=== PATIENT | male | born 1935 | race Caucasian/White ===

== ENCOUNTER 2020-05-08 17:20 | Emergency (ER) | payer OTHER, MEDICARE ==
[~2020-05-08] VITALS: Ht 180.3 cm; Wt 83.9 kg
[2020-05-08 17:40] LABS: BASOPHILS ABSOLUTE AUTO 0.08 K/mm3 (0.00-0.23); BASOPHILS PERCENT AUTO 1 % (0-2); EOSINOPHILS ABSOLUTE AUTO 0.25 K/mm3 (0.00-0.68); EOSINOPHILS PERCENT AUTO 5 % (0-6); Hematocrit 34.6 % (37.0-53.0); Hemoglobin 11.9 g/dL (13.5-17.5); IMMATURE GRAN ABSOLUTE AUTO 0.02 K/mm3 (0.00-0.10); IMMATURE GRAN PERCENT AUTO 0 % (0-1); LYMPHOCYTES ABSOLUTE AUTO 1.29 K/mm3 (0.84-5.20); LYMPHOCYTES PERCENT AUTO 23 % (21-46); MONOCYTES ABSOLUTE AUTO 0.62 K/mm3 (0.16-1.47); MONOCYTES PERCENT AUTO 11 % (4-13); Mean Corpuscular HGB 32.7 pg (26.0-34.0); Mean Corpuscular HGB Conc 34.4 g/dL (31.5-36.5); Mean Corpuscular Volume 95 fL (80-100); Mean Platelet Volume 10.3 fL (9.1-12.4); NEUTROPHILS ABSOLUTE AUTO 3.28 K/mm3 (1.96-9.15); NEUTROPHILS PERCENT AUTO 59 % (41-73); Platelet Count 188 K/mm3 (150-400); RDW Coefficient Variation 12.5 % (11.7-14.2); RDW Standard Deviation 43.4 fL (35.1-46.3); Red Blood Cell Count 3.64 M/mm3 (4.30-5.90); White Blood Cell Count 5.54 K/mm3 (4.00-11.30)
[2020-05-08 17:56] LABS: Bun/Creatinine Ratio 8.2 (12.0-20.0); Creatinine, Blood 2.31 mg/dL (0.60-1.20); Potassium, Blood 4.5 mmol/L (3.5-5.5)
[2020-06-02] MEDS ORDERED: CLOP75 PO (03:06)
[2020-06-02] MEDS ORDERED: ALLO100 PO (03:07)
[2020-06-02] MEDS ORDERED: MEMA10 PO (03:07)
[2020-06-02] MEDS ORDERED: ROSU10TA PO (03:07)
== END 2020-05-08 18:48 | disposition home or self-care (01) ==
LOC: ER 17:20
PROVIDERS: Emergency Medicine
DX: I95.9 Hypotension, unspecified (principal); E86.0 Dehydration
CPT/HCPCS: 80048; 85025; 93005; 93010; 99285-25

== ENCOUNTER 2020-09-11 11:57 | Inpatient (IN) | payer OTHER, MEDICARE ==
[~2020-09-11] VITALS: Ht 170.2 cm; Wt 71.5 kg
[~2020-09-11 11:57] MED LIST: ALLO100 PO; CLOP75 PO; MEMA10 PO; ROSU10TA PO
[2020-09-11 12:29] LABS: BASOPHILS ABSOLUTE AUTO 0.03 K/mm3 (0.00-0.23); BASOPHILS PERCENT AUTO 0 % (0-2); EOSINOPHILS ABSOLUTE AUTO 0.01 K/mm3 (0.00-0.68); EOSINOPHILS PERCENT AUTO 0 % (0-6); Hematocrit 46.9 % (37.0-53.0); Hemoglobin 15.5 g/dL (13.5-17.5); IMMATURE GRAN ABSOLUTE AUTO 0.06 K/mm3 (0.00-0.10); IMMATURE GRAN PERCENT AUTO 1 % (0-1); LYMPHOCYTES ABSOLUTE AUTO 1.16 K/mm3 (0.84-5.20); LYMPHOCYTES PERCENT AUTO 13 % (21-46); MONOCYTES ABSOLUTE AUTO 0.61 K/mm3 (0.16-1.47); MONOCYTES PERCENT AUTO 7 % (4-13); Mean Corpuscular HGB 32.4 pg (26.0-34.0); Mean Corpuscular Volume 98 fL (80-100); Mean Platelet Volume 10.4 fL (9.1-12.4); NEUTROPHILS ABSOLUTE AUTO 6.85 K/mm3 (1.96-9.15); NEUTROPHILS PERCENT AUTO 79 % (41-73); Platelet Count 209 K/mm3 (150-400); RDW Coefficient Variation 13.5 % (11.7-14.2); RDW Standard Deviation 49.1 fL (35.1-46.3); Red Blood Cell Count 4.79 M/mm3 (4.30-5.90); White Blood Cell Count 8.72 K/mm3 (4.00-11.30)
[2020-09-11 12:40] LABS: International Normalized Ratio 0.99; Prothrombin Time Results 10.6 Sec (9.7-11.5)
[2020-09-11 12:49] LABS: Albumin/Globulin Ratio 0.6 (0.8-1.8); Bilirubin, Total 0.6 mg/dL (0.1-1.0); Bun/Creatinine Ratio 15.3 (12.0-20.0); Calcium, Blood 9.1 mg/dL (8.5-10.1); Creatinine, Blood 3.2 mg/dL (0.60-1.20); Globulin, Blood 5.1 g/dL (2.2-4.0); Potassium, Blood 4.7 mmol/L (3.5-5.5); Total Protein, Blood 8.1 g/dL (6.4-8.2)
[2020-09-11 13:49] LABS: SARS-Cov-2 (COVID-19) PCR, MMC Positive (NEGATIVE)
[2020-09-11 13:53] LABS: Influenza A, PCR Negative (NEGATIVE); Influenza B, PCR Negative (NEGATIVE); Resp Syncytial Virus, PCR Negative (NEGATIVE)
[2020-09-11] MEDS ORDERED: CLOP75 PO (14:14)
[2020-09-11] MEDS ORDERED: ALLO100 PO (14:14)
[2020-09-11] MEDS ORDERED: Prinivil10 MG PO (14:14)
[2020-09-11] MEDS ORDERED: MEMA10 PO (14:14)
[2020-09-11] MEDS ORDERED: ROSU5 PO (14:15)
--- NOTE | 2020-09-11 17:43 | NUR ---
PT ARRIVED 1600 AOX1 THIS IS HIS BASELINE DUE TO DEMENTIA.PT IS RESTING IN BED AT THIS TIME WILL CONTINUE TO MONITOR. CALL LIGHT IS WITHIN REACH, PT WILL MOST LIKELY NOT KNOW HOW TO USE IT. BED ALARM ON.
--- NOTE | 2020-09-12 05:06 | NUR ---
84 year old MAle with dementia covid 19 positive was admitted yesterday through ER & he had been living at [facility] but had been taken home by with Covid 19 outbreak at Facility. Very poor oral intake fed bites of yogurt & sips honey thick liquids. He is on room air , has dry nonprod cough. Recieving 1.5 l NS at 75 ml hour. Incontinent of urine unable to void for UA ordered in ED. Confused can resist cares other times mumbling about going home & loving staff.
[2020-09-12 06:23] LABS: BASOPHILS ABSOLUTE AUTO 0.03 K/mm3 (0.00-0.23); BASOPHILS PERCENT AUTO 0 % (0-2); EOSINOPHILS ABSOLUTE AUTO 0.06 K/mm3 (0.00-0.68); EOSINOPHILS PERCENT AUTO 1 % (0-6); Hemoglobin 15.5 g/dL (13.5-17.5); IMMATURE GRAN ABSOLUTE AUTO 0.07 K/mm3 (0.00-0.10); IMMATURE GRAN PERCENT AUTO 1 % (0-1); LYMPHOCYTES ABSOLUTE AUTO 1.15 K/mm3 (0.84-5.20); LYMPHOCYTES PERCENT AUTO 14 % (21-46); MONOCYTES ABSOLUTE AUTO 0.76 K/mm3 (0.16-1.47); MONOCYTES PERCENT AUTO 9 % (4-13); Mean Corpuscular Volume 97 fL (80-100); Mean Platelet Volume 10.3 fL (9.1-12.4); NEUTROPHILS ABSOLUTE AUTO 6.13 K/mm3 (1.96-9.15); NEUTROPHILS PERCENT AUTO 75 % (41-73); Platelet Count 172 K/mm3 (150-400); RDW Coefficient Variation 13.7 % (11.7-14.2); RDW Standard Deviation 49.5 fL (35.1-46.3); Red Blood Cell Count 4.85 M/mm3 (4.30-5.90)
[2020-09-12 06:53] LABS: Albumin, Blood 2.6 g/dL (3.4-5.0); Albumin/Globulin Ratio 0.6 (0.8-1.8); Bilirubin, Total 0.7 mg/dL (0.1-1.0); Bun/Creatinine Ratio 22.8 (12.0-20.0); Calcium, Blood 8.6 mg/dL (8.5-10.1); Creatinine, Blood 1.8 mg/dL (0.60-1.20); Globulin, Blood 4.7 g/dL (2.2-4.0); Potassium, Blood 4.6 mmol/L (3.5-5.5); Total Protein, Blood 7.3 g/dL (6.4-8.2)
--- NOTE | 2020-09-12 16:53 | NUR ---
PT BLADDER SCANNED 454ML. PT WAS STRAIGHT CATHED AND TOLERATED WELL WITH HELP FROM SECOND NURSE TO DISTRACT PT. 400 MLs OUTPUT.
[2020-09-12 16:59] LABS: Source, Urine Catheter
[2020-09-12 17:06] LABS: Appearance, Urine Clear (Clear); Bilirubin, Urine Neg (Neg); Blood, Urine 1+ (Neg); Color, Urine Yellow (P-Yellow); Glucose Qualitative, Urine Neg (Neg); Ketones, Urine Neg (Neg); Leukocyte Esterase, Urine Neg (Neg); Nitrite, Urine Neg (Neg); Protein, Urine 2+ (Neg); Urobilinogen, Urine NORM (Normal)
[2020-09-12 17:18] LABS: Squamous Epithelial Cells Not Seen /hpf (Few); White Blood Cells, Urine 0-2 /hpf (0-5)
[2020-09-12 17:19] LABS: Bacteria Rare /hpf
--- NOTE | 2020-09-12 18:00 | NUR ---
PT AOX1 AND NEEDS TURNED EVERY COUPLE HOURS OR JUST REPOSITIONED IN BED. PT CAN NOT USE CALL LIGHT. PT HAD PT STANDING AT SIDE OF BED, BUT PT IS UNSTEADY. PT DID NOT VOID TILL RIGHT BEFORE FIRST BLADDER SCAN AND HAD OVER 600MLS. NOTIFIED DR COLLAZO AND A STRAIGHT CATH ORDER WAS ADDED TO EMAR. PT AGIAN VOIDED PRIOR TO STRAIGHT CATH AND SECOND BLADDER SCAN SHOWED 454MLs.STRAIGHT CATH WAS PREFORMED SEE NOTE. PT WAS NOT HAPPY ABOUT BEING STRIAGHT CATHED AND DIDN'T WANT TO TAKE PILL TRIED TO FEED PT DINNER AND HE SPIT IT OUT. PT IS RESTING AT THIS TIME WILL CONTINUE TO MONITOR BED ALARM IN PLACE.
--- NOTE | 2020-09-13 03:28 | NUR ---
84 year old Male with Dementia who is [place] who was living at [facility] when Covid 19 outbreak occured was taken home & had failure to thrive per EMS report. Covid 19 positive. Room air sat 90 to 93%. Pt continues with oral intake only with extensive assist cues setup. Able to take ensure via straw 50%. fed pudding around 200 ml over extended period. Confused unsure where he is or who he is. DNR status. VSS. Bladder scanned x 1 for greater than 293 but incont of large amt ramona urine. Used call martin x 1 . Cares channel music playing.
--- NOTE | 2020-09-13 10:50 | NUR ---
HE SLEPT IN THEN WAS FED BUT WOULD ONLY EAT A FEW BITES, THEN SPIT SOME OUT. HIS ATTENDS WERE CHANGED FOR A SMALL AMT OF URINE. WILL BLADDER SCAN HIM. HE LOOKS COMFORTABLE WHEN HE SLEEPS.
--- NOTE | 2020-09-13 15:29 | NUR ---
HE COUGHED WITH A FEW OF THE SWALLOWS AT LUNCHTIME. NO APPARENT ASPIRATION. MD NOTIFIED OF POOR INTAKE. HE HAS BEEN RESTING COMFORTABLY. HE WAS WATCHING THE TRAFFIC THROUGH THE WINDOW FOR A COUPLE OF HRS. HE LIKED THAT.
--- NOTE | 2020-09-13 17:57 | NUR ---
HE HAS BEEN PLEASANTLY CONFUSED ALL DAY. HE LOOKS COMFORTABLE. HE DOESN'T SEEM TO UNDERSTAND ANYTHING THAT IS SAID TO HIM. HE WAS ST. CATHED AT 1140 FOR 525 MLS OF CLEAR ELAINA URINE AFTER BEING UNABLE TO VOID EXCEPT FOR A SMALL DRIBBLE. PO INTAKE POOR. HE COUGHS DURING FEEDING AND HE SAYS HE'S HAD ENOUGH AFTER A FEW BITES AND REPEATS HIMSELF WHEN WE TRY TO GIVE HIM MORE BITES. HE WAS CAUGHT WITH A FEVER THIS MORNING BEFORE BREAKFAST BUT BY THE TIME I RECHECKED IT ABOUT 0930, IT WAS DOWN TO THE 99'S. HE HAS 1 SKIN BREAK ON HIS LEFT BUTTOCK. CREAM APPLIED DURING LINDA-CARE.
--- NOTE | 2020-09-14 02:51 | NUR ---
PT with advanced dementia with covid 19 and failure to thrive. PT has swallow issues modified fluids & soft food provided. He is unable to understand basic instructions. Extra support provided for cognative deficits related to dementia.
--- NOTE | 2020-09-14 03:01 | NUR ---
continue to provide extra support for dementia PT with covid 19.
--- NOTE | 2020-09-14 06:08 | NUR ---
84 year old [place] with dementia continues with pleasant confusion but still failure to eat or drink. Very poor oral intake bites sips only with extensive assist. PT affectionate. PT also repeatedly says he wants to go home but he has no idea where that is or who he is to. PT reportedly had been living at [facility] care facility [facility] when Covid outbreak occured. SW referral for DC planning. On room air occasional loose nonproductive cough. Incontient of ramona dark urine. Bladder scan x 2 with less than 400 PVR. Support offered with oral intake & taken poorly.
[2020-09-14 08:22] LABS: Hematocrit 43.3 % (37.0-53.0); Hemoglobin 14.4 g/dL (13.5-17.5); Mean Corpuscular HGB 31.8 pg (26.0-34.0); Mean Corpuscular HGB Conc 33.3 g/dL (31.5-36.5); Mean Corpuscular Volume 96 fL (80-100); Platelet Count 249 K/mm3 (150-400); RDW Coefficient Variation 13.3 % (11.7-14.2); RDW Standard Deviation 47.7 fL (35.1-46.3); Red Blood Cell Count 4.53 M/mm3 (4.30-5.90); White Blood Cell Count 6.52 K/mm3 (4.00-11.30)
[2020-09-14 08:44] LABS: Bun/Creatinine Ratio 19.8 (12.0-20.0); Calcium, Blood 8.7 mg/dL (8.5-10.1); Creatinine, Blood 1.26 mg/dL (0.60-1.20); Potassium, Blood 4.1 mmol/L (3.5-5.5)
--- NOTE | 2020-09-14 09:40 | NUR ---
HE JUST TOOK ABOUT 12 BITES OF OATMEAL AND A 1/3 OF A BOTTLE OF VANILLA ENSURE A LATE BREAKFAST. HE REFUSED EARLIER, SPITTING BITES OF EGG BACK OUT. HIS MOOD HAS BEEN LABILE. HE ALLOWED THE ELECTRONICS LEAD TO DRAW HIS BLOOD AFTER FIGHTING IT AT FIRST. LAB RESULTS ARE IMPROVED OVER PREVIOUS ONES. ISOLATION ONGOING AND BED ALARM ON.
--- NOTE | 2020-09-14 18:19 | NUR ---
HIS CALLED TODAY AND LATER, HIS DAUGHTER TIKA FROM [place] CALLED. I COULD NOT GIVE HER ANY INFORMATION BUT GAVE HER THE NUMBER TO CALL INTO THE ROOM. I HELD THE PHONE FOR HIM. I BELIEVE HE KNEW WHO SHE WAS. HE MOSTLY SAID HE WANTED TO GO HOME AND TO SEE HER. HIS MOODS CHANGED OFTEN TODAY. HIS BLADDER SCAN WAS 203 AT NOON. HE HAS NOT VOIDED THIS SHIFT. NO OTHER CHANGES.
--- NOTE | 2020-09-15 05:39 | NUR ---
SHIFT SUMMARY ASSUMED CARE OF PT AT 1900. PT IS A/OX1. PT SCREAMS OUT IN HIS ROOM, PT ABLE TO BE CALMED WITH SINGING AND REASSURANCE. HEART SOUNDS REGUALR, LUNG SOUNDS DIMINISHED T/O. PT COUGHS WITH EACH DRINK OF WATER. PT INCONTINENT OF URINE, BLADDER SCANS HAVE BEEN ABOUT 200ML POST VOID. PT WAS NOT ABLE TO FOLLOW DIRECTIONS TO TAKE MEDICATION THE PM, AND PILL COULD NOT BE CRUSHED. PT HAS TWO RED ASIF ON BUTTOCK, TURNED Q2. PT O2 LEVELS THIS AM WERE 86% AFTER BEING CHANGED. PT WAS PUT ON 3L NC AND SATURATIONS ARE AROUND 90-93%. WILL CONTINUE TO MONITOR. CALL LIGHT IN REACH, BED IN LOWEST POSTION.
--- NOTE | 2020-09-15 19:40 | NUR ---
ASSUMED CARE. TRIP IS ALERT ORIENTED TO SELF ONLY. UNABLE TO STATE OR WHERE HE IS AT. FEARFUL, ASKING FOR HELP, WANTS TO GO HOME, STATES HE HAS NO WHERE TO GO, IS AFRAID OF BEING ALONE. REASSURRED HIM HE WAS SAFE AND STAYING HERE RIGHT NOW. LUNG SOUNDS ARE CLEAR, MILD DIMINISHED IN THE BASES. OCCATIONAL COUGH, NON-PRODUCTIVE. DENIED PAIN. ATTENDS DRY, BUT THERE WAS A LARGE WET URINE SPOT ON THE COVERS. REMOVED COVERS, STRAIGHTEN UP BED AND ROOM. DENIES NEED TO URINATE AT THIS TIME. REPOSITIONED UP IN BED. CALL LIGHT GIVEN. ADMINISHED HIS MED BY [facility]. OFFERED WATER. BED ALARM IS ON, 3 RAILS. WILL CONTINUE TO MONITOR.
--- NOTE | 2020-09-15 21:58 | NUR ---
TRIP IS VERY CONFUSED, HAVING AUDITORY AND VISUAL HULLUCINATIONS. STILL CALLING OUT FOR HIS , HELP AND WANTING TO GO HOME. 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 BEEN IN THE ROOM SEVERAL TIMES TO CALM HIM DOWN AND REASSURE HIM. PROVIDED COMFORT WITH JUST SITTING IN THE ROOM WITH HIM. ATTENDS DRY AT THIS TIME. BED ALARM IS ON.
--- NOTE | 2020-09-16 01:04 | NUR ---
TRIP HAS HAD SEVERAL INCONTIENT VOIDS TONIGHT. THIS TIME HE WAS A LITTLE OFFENSIVE NOT WANTING ME TO CHANGE HIM. HE KEPT PUSHING ME AWAY THINKING I WAS GOING TO HURT HIM. HE CONSTANTLY SAID DON'T HURT ME. GAVE STEP TO STEP INSTRUCTIONS ON WHAT I WAS DOING. BLADDER SCAN POST VOID WAS 101. CLEAN BLANKETS GIVEN AGAIN. THINK HE IS TRYING TO GO TO THE BATHROOM BY PULLING SELF OUT OF ATTENDS AND VOIDING, ENCOURAGED USE OF URINAL BUT HE DOES NOT REMEMBER. WILL KEEP HIM CLEAN AND DRY T/O THE NIGHT. BED ALARM IS ON, MUSIC PLAYING, CALL LIGHT NEXT HEAD.
--- NOTE | 2020-09-16 05:06 | NUR ---
SHIFT SUMMARY: TRIP IS PLEASANTLY CONFUSED. TENDS TO BE FEARFUL CONSTANTLY REPEATING HELP, WANT TO GO HOME, AND DON'T HURT ME. THERE WAS A FEW TIMES HE PUSHED ME AWAY HE DID NOT WANT TO BE MESSED WITH BUT NEVER HIT. HIS BLADDER SCAN PVR WAS 101, HE HAS BEEN URINATING WELL ALL NIGHT. VS WNL, MILD FEBRILE AT 99. SMALL BM NOTED. SLEPT OFF AND ON. NO OTHER CHANGES TO NOTE. CALL LIGHT IN REACH, BED ALARM IS ON.
--- NOTE | 2020-09-16 17:50 | NUR ---
SHIFT SUMMARY PT SLEEPING AT START OF SHIFT. DID NOT LIKE TO BE BOTHERED OR WOKE UP. PT LATER AWAKE BUT NOT CO-OP. PT REFUSED HIS BREAKFAST AND AM MEDS. ANS YES AT ONE POINT TO WANTING SOME OATMEAL. FLOMAX GIVEN WITH SPOON OF OATMEAL, BUT PT SHOOK HIS HEAD AND SPIT OATMEAL AND FLOMAX AT THIS RN. PT REFUSED ANYTHING FURTHER OFFERED. REFUSED TO DRINK ANYTHING WELL. PT FINALLY AGREED TO DRINKING A SMALL AMT OF MILK AND A SIP OF WATER. PT REFUSED LUNCH COMPLETELY. PT FINALLY DID VOID X1 THIS AFTERNOON. LINEN, GOWN, AND ATTENDS ALL CHANGED FOR COMFORT AT THE SAME TIME. PT WAS SOMEWHAT AGREEABLE AT THAT TIME, ALLOWING THIS RN TO CHANGE HIM, BECAUSE HIS HAD JUST CALLED FOR AN UPDATE AND IT WAS MENTIONED TO THE PT THAT HIS HAD CALLED. PT WAS DISTRACTED WHILE CHANGING BY TALKING ABOUT HIS . PT LATER AGREEABLE TO TAKING A BITE OF MASHED POTATOES, THEN REFUSED ANY REMAINING DINNER. PT DID EAT 3 BITES OF ICE CREAM BEFORE REFUSING EVERYTHING ELSE. REFUSED TO DRINK ANYTHING OFFERED WELL. PT AWAKE MORE THIS EVENING THAN HE WAS EARLY INTO SHIFT. NO C/O. BED ALARM ON FOR SAFETY. CALL LT IN REACH.
--- NOTE | 2020-09-17 05:12 | NUR ---
SUMMARY PT WAS AGITATED AT BEGINNING OF SHIFT. PT REPEATEDLY PULLED OFF ATTENDS AND PULLED OUT IV. PT ATTEMPTED TO GET OUT OF BED MULTIPLE TIMES. PROVIDER CALLED AND A SHARMILA VEST WAS ORDERED. PT HAS BEEN HAVING INCOTINENT VOIDS. BLADDER SCANS < 400 ML. PT HAS SLEPT SOME THIS SHIFT. PT DAUGHTER TIKA CALLED FOR A UPDATE. NUMBER ON BOARD. CALL LIGHT IN REACH AND BED ALARM ON.
--- NOTE | 2020-09-17 18:38 | NUR ---
SHIFT SUMMARY PT MORE AWAKE TODAY AND PLEASANT ALL DAY. SAID YES TO EATING SOME OF EVERY MEAL TODAY. TOOK ALL MEDICATIONS IN FOOD. INCONTINENT OF URINE ALL BUT ONCE; WAS ABLE TO USE URINAL X1 WITH ASSIST. KEEPS ATTENDS DRY, BUT VOIDS ON LINEN. REMAINS CONFUSED AND DISORIENTED, BUT WAS PLEASANT AND CO-OP ALL DAY. PT IN VEST RESTRAINT FOR SAFETY, D/T CONFUSION AND HIGH FALL RISK. PT DOES NOT KNOW WHERE HE IS OR WHY. PT'S CALLED AGAIN TODAY TO CK ON PT; UPDATE GIVEN. PT WAITING FOR NEGATIVE COVID IN ORDER TO BE INTERVIEWED BY RAFAEL GLOVER. BED ALARM ON FOR SAFETY. CALL LT IN REACH.
--- NOTE | 2020-09-18 04:39 | NUR ---
SHIFT SUMMARY PATIENT HAD NO ACUTE CHANGES OBSERVED. AXOX TO SELF AND BEDREST. HX ADVANCED DEMENTIA. TAKES MEDICATION CRUSHED IN APPLE SAUCE. NO IV ACCESS. SHARMILA VEST FOR SAFETY, HIGH FALL RISK, AND FOR CONFUSION. PATIENT CALLED THIS NOC SHIFT AND UPDATE GIVEN. VSS/AFEBRILE. DENIES PAIN, SOB, AND N/V. CALL LIGHT IN REACH, BED IN LOWEST POSITION AND ALARM ACTIVATED. WILL CONTINUE TO MONITOR UNTIL DAY SHIFT NURSE ASSUMES CARE.
--- NOTE | 2020-09-18 18:22 | NUR ---
SHIFT SUMMARY PT ALERT ORIENTED TO SELF AND . PT ON VEST RESTRAINTS; VERY HIGH FALL RISK. RESTRAINTS MANAGEMENT PER POLICY Q2. PT TAKES MEDICATION WITH APPLESAUCE. PT CALLED TO GET AN UPDATE FOR THE PT. PT PLEASANTLY CONFUSED. BED ALARM IS ON AND CALL LIGHTS WITHIN REACH.
--- NOTE | 2020-09-19 03:45 | NUR ---
SHIFT SUMMARY HAS BEEN AWAKE AT INTERVALS, INCONT OF URINE AND FECES - OCCASIONALLY FLINGING FECES ABOUT ROOM. SHARMILA VEST ON TO PREVENT FALLING OUT OF BED HE CONTINUES TO VOICE HE WASNTS TO GO HOME AND IS VERY UNSTEADY. ISOLATION PRECAUTIONS MAINTAINED FOR COVID 19. CALL LIGHT IN REACH
--- NOTE | 2020-09-19 10:36 | NUR ---
PT APPEARS TO BE BREATHING EASILY ON RA AT THIS TIME, THE PT IS VERY CONFUSED, PT WAS ASSISTED WITH BREAKFAST, CHEWED HIS AM FLOMAX, PT REMAINS IN SHARMILA VEST AT THIS TIME, PT WOULD ONLY EAT SOME BITES THIS AM, HOWEVER, DID DRINK THE ENSURE
--- NOTE | 2020-09-19 16:28 | NUR ---
PT IS ALERT, ORIENTED ONLY TO SELF, THE PT APPEARS TO BE BREATHING EASILY ON RA AT THIS TIME, THE PT IS IMPULSIVE AND CONTINUES TO NEED VEST RESTRAINT AT THIS TIME, THE PT WAS ASSISTED WITH MEALS, HE ATE BITES ONLY FOR BREAKFAST, AND ABOUT 30-40% OF HIS LUNCH THE PT COMPLETLY DRANK THIS AM'S ENSURE, CALL LIGHT IN REACH WILL CONTINUE TO MONITOR AND ASSESS FOR CHANGES
--- NOTE | 2020-09-19 21:26 | NUR ---
TEMP ELEVATED, WAS 102.6 TEMPORAL. TYLENOL ADMINISTERED, MED EFFECTIVE. TEMP NOW 100.0 TEMPROAL. LESS ANXIOUS. RESSTING QUIETLY. CALL LIGHT IN REACH
--- NOTE | 2020-09-20 04:44 | NUR ---
SHIFT SUMMARY AWAKE AT INTERVALS, CHANGED WHEN INCONT OF URINE AND OF FECES. SHARMILA REMAINS NI USE TO PREVENT FALLS, HE IS UNSTEADY AND HIGH FALL RISK, REQUIRING REDIRECTIONS THROUGH SHIFT. CALL LIGHT IN REACH. ISOLATION PRECAUTIONS MAINTAINED.
[2020-09-20 05:59] LABS: Hemoglobin 15.8 g/dL (13.5-17.5); Mean Corpuscular HGB Conc 32.2 g/dL (31.5-36.5); Mean Corpuscular Volume 99 fL (80-100); Mean Platelet Volume 10.9 fL (9.1-12.4); Platelet Count 343 K/mm3 (150-400); RDW Coefficient Variation 14.3 % (11.7-14.2); RDW Standard Deviation 51.7 fL (35.1-46.3); Red Blood Cell Count 4.94 M/mm3 (4.30-5.90); White Blood Cell Count 22.64 K/mm3 (4.00-11.30)
[2020-09-20 06:22] LABS: Albumin, Blood 2.5 g/dL (3.4-5.0); Anion Gap 5 mmol/L (6-16); Blood Urea Nitrogen 47 mg/dL (8-24); Bun/Creatinine Ratio 24.1 (12.0-20.0); CO2, Blood 27 mmol/L (21-32); Calcium, Blood 9.4 mg/dL (8.5-10.1); Chloride, Blood 113 mmol/L (98-108); Creatinine, Blood 1.95 mg/dL (0.60-1.20); Glomerular Filtration Rate 35 (60-); Glucose, Blood 137 mg/dL (70-99); Phosphorus, Blood 2.7 mg/dL (2.5-4.9); Potassium, Blood 4.7 mmol/L (3.5-5.5); Sodium, Blood 145 mmol/L (136-145)
[2020-09-20 09:20] LABS: PCO2 Arterial 26.8 mmHg (35-45); PO2 Arterial 69.3 mmHg (80-100); pH Blood Arterial 7.47 (7.35-7.45)
[2020-09-20 10:54] LABS: Source, Urine Catheter
[2020-09-20 11:07] LABS: Appearance, Urine Hazy (Clear); Blood, Urine 1+ (Neg); Color, Urine Yellow (P-Yellow); Glucose Qualitative, Urine Neg (Neg); Ketones, Urine 1+ (Neg); Leukocyte Esterase, Urine 1+ (Neg); Nitrite, Urine Neg (Neg); Protein, Urine 2+ (Neg); Urobilinogen, Urine 1+ (Normal)
[2020-09-20 11:43] LABS: Bilirubin, Urine 1+ (Neg)
[2020-09-20 11:45] LABS: Amorphous Heavy (0-Heavy); Bacteria Few /hpf; Squamous Epithelial Cells Rare /hpf (Few)
--- NOTE | 2020-09-20 16:15 | NUR ---
PT IS ALERT, ORIENTED TO SELF ONLY, THE PT IS UP WITH 2 PERSON ASSIST TO THE CHAIR, THE PT APPEARS TO BE BREATHING EASILY ON RA SO FAR THIS SHIFT, O2 SATS WERE CHECKED MORE FREQUANTLY TODAY, THE PT CONTINUES TO HAVE A POOR APPETITE, ONLY TAKING A SMALL AMOUNT OF BITES, THE PT WAS OFFERED FLUIDS FREQUANTLY T/O THE DAY, PT DID DRINK THE ENSURE SENT WITH HIS MEAL TRAYS, THE PT REMAINS IN A SHARMILA VEST DUE TO HIGH FALL RISK, WEAKNESS AND SEVERE DEMENTIA, PT DENIED ANY PAIN, PT WAS UP IN THE CHAIR FOR BREAKFAST AND WILL TRANSFER HIM TO THE CHAIR FOR DINNER, CALL LIGHT IN REACH, WILL CONTINUE TO MONITOR AND ASSESS FOR CHANGES
--- NOTE | 2020-09-20 16:33 | NUR ---
Spiritual care note: Mr. Kam awakens to voice, mumbles incoherantly, and went back to sleep. He denied pain and appears comfortable. Per chart, he is non-christianity. Held his hand for awhile providing presence. I will remain available.
--- NOTE | 2020-09-20 18:24 | NUR ---
IV ACCESS THIS RN WAS NOT ABLE TO START AN IV AFTER 3 TRIES WITH THE PATIENT, THE OUTER DIAMETER TECHNICIAN WAS NOTIFIED AND THE IV START WILL BE PASSED TO THE PREMIUM CANCELLATION CLERK PER OUTER DIAMETER TECHNICIAN MARU
--- NOTE | 2020-09-20 21:10 | NUR ---
PHYSICIAN CONTACT PATTERN MARKER PROVIDER NOTIFIED OF CURRENT VITALS. 500ML BOLUS ORDERED.
[2020-09-20 22:48] LABS: Albumin, Blood 2.4 g/dL (3.4-5.0); Albumin/Globulin Ratio 0.4 (0.8-1.8); Bilirubin, Total 0.5 mg/dL (0.1-1.0); Bun/Creatinine Ratio 23.5 (12.0-20.0); Calcium, Blood 9.5 mg/dL (8.5-10.1); Creatinine, Blood 3.07 mg/dL (0.60-1.20); Globulin, Blood 5.8 g/dL (2.2-4.0); Potassium, Blood 4.5 mmol/L (3.5-5.5); Total Protein, Blood 8.2 g/dL (6.4-8.2)
--- NOTE | 2020-09-21 04:45 | NUR ---
RISK AND COMPLIANCE ANALYTICS DIRECTOR SUMMARY ALERT AND ORIENTED TO SELF ONLY. UNABLE TO FOLLOW DIRECTIONS. ICU NURSE TO BEDSIDE TO ESTABLISH PERIPHERAL LINE. PT HYPOTENSIVE AT BEGINNING OF SHIFT, 500ML BOLUS GIVEN FOLLOWED BY DOSE OF ROCEPHIN AND REMDESIVIR. APPEARED TO SLEEP T/O SHIFT. SHARMILA VEST IN PLACE WELL L. SOFT WRIST RESTRAINT. NO ACUTE NEEDS AT THIS TIME. BED IN LOWEST POSITION WITH CALL LIGHT IN REACH. BED ALARM ACTIVE. WILL CONTINUE TO MONITOR AND REPORT TO ONCOMING RN.
[2020-09-21 05:42] LABS: Hemoglobin 14.3 g/dL (13.5-17.5); Mean Corpuscular HGB 32.3 pg (26.0-34.0); Mean Corpuscular HGB Conc 32.5 g/dL (31.5-36.5); Mean Corpuscular Volume 99 fL (80-100); Mean Platelet Volume 11.2 fL (9.1-12.4); Platelet Count 321 K/mm3 (150-400); RDW Coefficient Variation 14.3 % (11.7-14.2); RDW Standard Deviation 52.7 fL (35.1-46.3); Red Blood Cell Count 4.43 M/mm3 (4.30-5.90); White Blood Cell Count 26.04 K/mm3 (4.00-11.30)
[2020-09-21 05:58] LABS: Albumin, Blood 2.2 g/dL (3.4-5.0); Anion Gap 7 mmol/L (6-16); Blood Urea Nitrogen 66 mg/dL (8-24); Bun/Creatinine Ratio 24.1 (12.0-20.0); CO2, Blood 26 mmol/L (21-32); Chloride, Blood 114 mmol/L (98-108); Creatinine, Blood 2.74 mg/dL (0.60-1.20); Glomerular Filtration Rate 24 (60-); Glucose, Blood 147 mg/dL (70-99); Potassium, Blood 4.1 mmol/L (3.5-5.5); Sodium, Blood 147 mmol/L (136-145)
--- NOTE | 2020-09-21 18:06 | NUR ---
SHIFT SUMMARY. ALERT, ORIENTATED TO SELF, ANSWERS SOME Y/N QUESTIONS APPROPRIATLEY, PLEASANT AND COOPERATIVE WITH STAFF. PT DENIES PAIN, NO S/SX OF DISCOMFORT OR DISTRESS. POOR PO INTAKE, PT ONLY TAKES A FEW BITES AT EACH MEAL BEFORE REFUSING TO TAKE ANY MORE, PT WILL ALSO ONLY DRINK APPROXIMATLEY 100ML OF FLUIDS AT A TIME. INCONTINENT OF BOWEL AND BLADDER. BLADDER SCAN THIS AFTERNOON REVEALED VOLUME OF OVER 500ML, PT THEN HAD VERY LARGE INCONTINENT VOID, FOLLOWED BY ANOTHER APPROXIMATELY 2 HOURS AFTER. UPDATED ON PT'S STATUS THIS AFTERNOON. LUNGS CLEAR, DIM T/O, SHALLOW BREATHING, ON RA WITH NO RESPIRATORY DISTRESS. NO OTHER CHANGES OR CONCERNS.
--- NOTE | 2020-09-22 04:30 | NUR ---
FPGA DESIGN ENGINEER WAS NOT ABLE TO DRAW BLOOD THIS AM;WILL TRY AGAIN AT 7AM FOR RENAL AND CBC LAB DRAW.
--- NOTE | 2020-09-22 04:58 | NUR ---
SHIFT SUMMARY PT AOX1 TO SELF ONLY. PT BLADDER SCAN AMOUNT 338 ML; PT HAD A INCONTINENT VOID AMOUNTX2 FOR THIS SHIFT. DENIES PAIN AND NO APPARENT DISTRESS. DIMINISHED LUNG SOUNDS THROUGHOUT. PT IS PLEASANTLY CONFUSED. VSS. BED ALARM IS ON AND BED IS IN THE LOWEST POSITION; CALL LIGHT WITHIN REACH.
[2020-09-22 08:05] LABS: BASOPHILS ABSOLUTE AUTO 0.03 K/mm3 (0.00-0.23); BASOPHILS PERCENT AUTO 0 % (0-2); EOSINOPHILS ABSOLUTE AUTO 0.01 K/mm3 (0.00-0.68); EOSINOPHILS PERCENT AUTO 0 % (0-6); Hematocrit 45.2 % (37.0-53.0); Hemoglobin 14.5 g/dL (13.5-17.5); IMMATURE GRAN ABSOLUTE AUTO 0.17 K/mm3 (0.00-0.10); IMMATURE GRAN PERCENT AUTO 1 % (0-1); LYMPHOCYTES ABSOLUTE AUTO 0.93 K/mm3 (0.84-5.20); LYMPHOCYTES PERCENT AUTO 6 % (21-46); MONOCYTES ABSOLUTE AUTO 0.56 K/mm3 (0.16-1.47); MONOCYTES PERCENT AUTO 4 % (4-13); Mean Corpuscular HGB 31.3 pg (26.0-34.0); Mean Corpuscular HGB Conc 32.1 g/dL (31.5-36.5); Mean Corpuscular Volume 98 fL (80-100); NEUTROPHILS ABSOLUTE AUTO 13.89 K/mm3 (1.96-9.15); NEUTROPHILS PERCENT AUTO 89 % (41-73); RDW Coefficient Variation 14.7 % (11.7-14.2); RDW Standard Deviation 52.7 fL (35.1-46.3); Red Blood Cell Count 4.63 M/mm3 (4.30-5.90); White Blood Cell Count 15.59 K/mm3 (4.00-11.30)
[2020-09-22 08:09] LABS: Mean Platelet Volume 11.6 fL (9.1-12.4); Platelet Count 245 K/mm3 (150-400)
[2020-09-22 10:01] LABS: Albumin, Blood 2.1 g/dL (3.4-5.0); Anion Gap 6 mmol/L (6-16); Blood Urea Nitrogen 78 mg/dL (8-24); Bun/Creatinine Ratio 41.9 (12.0-20.0); CO2, Blood 22 mmol/L (21-32); Calcium, Blood 9.3 mg/dL (8.5-10.1); Chloride, Blood 119 mmol/L (98-108); Creatinine, Blood 1.86 mg/dL (0.60-1.20); Glomerular Filtration Rate 37 (60-); Glucose, Blood 189 mg/dL (70-99); Phosphorus, Blood 3.3 mg/dL (2.5-4.9); Potassium, Blood 4.3 mmol/L (3.5-5.5); Sodium, Blood 147 mmol/L (136-145)
[2020-09-22 14:51] LABS: Vancomycin, Random 8.2 ug/mL
--- NOTE | 2020-09-22 18:10 | NUR ---
SHIFT SUMMARY. ALERT, DISORIENTATED. PULLING AT LINES AND ATTEMPTING TO GET OOB UNASSISTED, DOOR MUST REMAIN CLOSED SO RESTRAINTS REQUIRED FOR SAFETY AND TO PRESERVE IV LINE FOR MEDICATIONS. CONTINUES WITH POOR PO INTAKE, PT WILL REFUSE TO EAT OR DRINK MORE THAN 2-4 BITES OR 2-4 DRINKS AT A TIME. INCONTINENT OF BOWEL AND BLADDER. NO OTHER CHANGES OR CONCERNS.
--- NOTE | 2020-09-23 05:37 | NUR ---
SHIFT SUMMARY: VSS. AFEB. AA0 TO SELF AND SPOUSE. AT TIMES TEARFUL AND SEEKING REASSURANCE. WILL CALL OUT OCCASIONALLY BUT REDIRECTS WELL. SHARMILA VEST IN PLACE AND BED ALARM. PT VERY ACTIVE IN BED. REMOVES SOCKS AND ATTENDS FAST THEY CAN BE APPLIED. INCONTINENT. STRAIGHT CATHED DUE TO NO VOID. PT SLEPT INTERMITTENTLY. 02 95-100% ON RA. LS CLEAR/DIM. NO COUGHING NOTED.
[2020-09-23 05:51] LABS: Albumin, Blood 2.2 g/dL (3.4-5.0); Anion Gap 5 mmol/L (6-16); Blood Urea Nitrogen 74 mg/dL (8-24); Bun/Creatinine Ratio 45.4 (12.0-20.0); CO2, Blood 26 mmol/L (21-32); Calcium, Blood 9.5 mg/dL (8.5-10.1); Chloride, Blood 118 mmol/L (98-108); Creatinine, Blood 1.63 mg/dL (0.60-1.20); Glomerular Filtration Rate 43 (60-); Glucose, Blood 160 mg/dL (70-99); Phosphorus, Blood 3.7 mg/dL (2.5-4.9); Sodium, Blood 149 mmol/L (136-145)
--- NOTE | 2020-09-24 04:54 | NUR ---
SHIFT SUMMARY: VSS. AFEB. A/OX1. 02 95% ON RA. NO SOB. INFREQUENT DRY COUGH. NO ATTEMPTS TO SELF T/F, SEEMS TO BE LEAVING IV SITE ALONE. PT REMOVES GOWN AND ATTENDS REPEATEDLY. INCONTINENT X 2 AND STRAIGHT CATHED X1 D/T PVR >400. PT SLEPT INTERMITTENTLY. OFTEN TALKING TO SELF WHILE AWAKE. MOODS ARE LABILE, PT CRIES, LAUGHS, AND WILL BECOME COMBATIVE ALL IN THE SAME MINUTE. EASILY REDIRECTS. NO ACUTE CHANGES OVERNIGHT.
[2020-09-24 06:05] LABS: Albumin, Blood 2.1 g/dL (3.4-5.0); Anion Gap 7 mmol/L (6-16); Blood Urea Nitrogen 73 mg/dL (8-24); Bun/Creatinine Ratio 45.1 (12.0-20.0); CO2, Blood 23 mmol/L (21-32); Calcium, Blood 9.3 mg/dL (8.5-10.1); Chloride, Blood 115 mmol/L (98-108); Creatinine, Blood 1.62 mg/dL (0.60-1.20); Glomerular Filtration Rate 43 (60-); Glucose, Blood 279 mg/dL (70-99); Phosphorus, Blood 2.4 mg/dL (2.5-4.9); Potassium, Blood 4.9 mmol/L (3.5-5.5); Sodium, Blood 145 mmol/L (136-145)
--- NOTE | 2020-09-24 15:22 | NUR ---
PATIENT IS ALERT AND ORIENTED TO SELF AND FOLLOWING DIECTIONS. PATIENT CRIES OUT ALOT AND CAN BECOME COMBATIVE WITH CARE. THE PATIENT'S CALLED THIS AFTERNOON AND TALKED TO THE RN AND PATIENT. THE PATIENT'S SAID THE PATIENT WAS AMBULATING AT HOME WITHOUT ASSISTANCE BEFORE HIS ADMISSION. WILL CONTINUE TO MONITOR
--- NOTE | 2020-09-24 16:50 | NUR ---
PATIENT IS ALERT AND ORIENTED TO SELF,FAMILY AND FOLLOWING DIRECTIONS. PATIENT IS CONFUSED BUT EASILY REDIRECTABLE. PATIENT HAS HAD A GOOD APPETITE TODAY EATING MOST OF HIS MEALS WITH ASSISTANCE. K-PHOS INFUSING AT THIS TIME. WILL CONTINUE TO MONITOR.
--- NOTE | 2020-09-25 04:20 | NUR ---
SHIFT SUMMARY: VSS. AFEB. 02 97% ON RA. LSCTA W/DIM BASES. INFREQUENT DRY COUGH. RESPS REG, NON-LABORED. PT HAS INCREASED ANXIETY TONIGHT W/ MORE YELLING OUT COMPARED TO THE 2 PREVIOUS NIGHTS. YELLING, "LET ME OUT OF HERE" AND "HELP ME". REDIRECTS IN THE MOMENT BUT FORGETFUL AND WILL BEGIN YELLING AGAIN SHORTLY AFTER STAFF LEAVE THE ROOM. MOODS LABILE. PT TEARFUL, LAUGHING, AND ANGRY ALL IN QUICK SUCCESSION. BED ALARM ON, NO ATTEMTPS TO SELF T/F. INCONT OF BOWEL AND BLADDER. SEVERAL LARGE, INCONT VOIDS TONIGHT. NO ACUTE CHANGES AT THIS TIME.
[2020-09-25 05:35] LABS: Hematocrit 48.4 % (37.0-53.0); Hemoglobin 15.4 g/dL (13.5-17.5); Mean Corpuscular HGB 31.8 pg (26.0-34.0); Mean Corpuscular HGB Conc 31.8 g/dL (31.5-36.5); Mean Corpuscular Volume 100 fL (80-100); Platelet Count 304 K/mm3 (150-400); RDW Coefficient Variation 14.9 % (11.7-14.2); RDW Standard Deviation 55.5 fL (35.1-46.3); Red Blood Cell Count 4.85 M/mm3 (4.30-5.90); White Blood Cell Count 13.06 K/mm3 (4.00-11.30)
[2020-09-25 08:36] LABS: Albumin, Blood 2.2 g/dL (3.4-5.0); Anion Gap 6 mmol/L (6-16); Blood Urea Nitrogen 65 mg/dL (8-24); Bun/Creatinine Ratio 48.1 (12.0-20.0); CO2, Blood 24 mmol/L (21-32); Calcium, Blood 8.9 mg/dL (8.5-10.1); Chloride, Blood 112 mmol/L (98-108); Creatinine, Blood 1.35 mg/dL (0.60-1.20); Glomerular Filtration Rate 54 (60-); Glucose, Blood 226 mg/dL (70-99); Phosphorus, Blood 3.4 mg/dL (2.5-4.9); Potassium, Blood 5.4 mmol/L (3.5-5.5); Sodium, Blood 142 mmol/L (136-145)
[2020-09-25 16:52] LABS: Influenza A, PCR Negative (NEGATIVE); Influenza B, PCR Negative (NEGATIVE); Resp Syncytial Virus, PCR Negative (NEGATIVE); SARS-Cov-2 (COVID-19) PCR, MMC Positive (NEGATIVE)
--- NOTE | 2020-09-25 17:09 | NUR ---
CRITICAL VALUE RECEIVED CRITICAL VALUE NOTIFICATION FROM LAB AT 1651, PT REMAINS POSITIVE FOR COVID 19. DR COLLAZO INFORMED VIA T/C AT 1702. NO NEW ORDERS RECEIVED.
--- NOTE | 2020-09-25 18:35 | NUR ---
REPEAT COVID TEST DONE, PT CONTINUES TO SHOW UP POSITIVE. DR COLLAZO INFORMED. NO ACUTE CHANGES NOTED THIS SHIFT, WILL CONTINUE TO MONITOR AND REPORT TO ONCOMING RN
--- NOTE | 2020-09-26 06:10 | NUR ---
LINUX DEVELOPER SUMMARY NO ACUTE CHANGES THIS SHIFT. PT AAOX1, FOLLOWS SOME COMMANDS AND CAN ANSWER BASIC YES/NO QUESTIONS. VERY INCONSISTENT MOODS, CAN BE PLEASANT AND COOPERATIVE ONE SECOND AND THEN IRRITABLE AND AGGRESSIVE THE NEXT. HAD LARGE BM AT START OF SHIFT. PT HAS ALSO HAD MULTIPLE INCONTINENT EPISODES OF URINE. BLADDER SCAN THIS AM 274 ML, NOT REQUIRING STRAIGHT CATH PER ORDERS. VSS, WILL CONTINUE TO MONITOR.
--- NOTE | 2020-09-27 05:09 | NUR ---
COMB FIXER SUMMARY NO ACUTE CHANGES. AAOX1. ASSISTED WITH REPOSITIONING AND ATTENDS CHANGES NEEDED. PT DENIES PAIN. VSS, WILL CONTINUE TO MONITOR.
--- NOTE | 2020-09-27 18:42 | NUR ---
SUMMARY- PT ALERT TO SELF AND REMEMBERS HIS . PT HAS LABILE MOOD, CHILDLIKE. NEEDS FREQ REASSURANCE THAT HE IS LOVED AND NO ONE WILL HURT HIM. OT INCONT AND ONCE USED URINAL. 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 HAS A GREAT APPETITE. PT UP TO CHAIR FROM [phone] TODAY WORKING WITH PHYSICAL THERAPY. RN 2 SBA PIVOT TX TO BED. TRUMAN HUIZAR CALLED; GIVEN UPDATE. WILL REPORT TO NIGHTS.
--- NOTE | 2020-09-28 04:11 | NUR ---
SHIFT SUMMARY ASSUMED CARE OF PT AT 1900. PT IS A/OX1, PT IS VERY FORGETFUL AND WILL WAKE UP SCREAMING. PT ATTEMPTS TO GET OUT OF BED WHEN HE HAS TO GO TO THE BATHROOM. HEART SOUNDS REGUALR, LUNG SOUNDS HAVE CRACKLES T/O. PT WAS INCONTIENT BOWEL, CONTINENT OF URINE THIS PM. PT WAS ABLE TO TAKE PILLS EMPTIED IN APPLESAUCE. CALL LIGHT IN REACH, BED IN LOWEST POSITION, WILL CONTINUE TO MONITOR.
--- NOTE | 2020-09-28 18:33 | NUR ---
SUMMARY- PT ALERT TO SELF- VERY CONFUSED. OCCASIONAL DELUSIONAL THAT PEOPLE WANT TO HURT HIM. HE IS RESISTANT TO TURNING AND ADL'D. PT HAD A BEDBATH TODAY AND LINEN CHANGE. PT INCONT/CONT. ATTENDS IN USE. BOTTOM MILDLY RED, APPLIED BARRIER CREAM WITH ATTEND CHANGE. 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 VSS, SATS MID 90'2 ON ROOM AIR, LUNGS CLEAR. WILL REPORT TO NIGHT RN.
--- NOTE | 2020-09-29 04:24 | NUR ---
SHIFT SUMMARY ASSUMED CARE OF PT AT 1900. PT HAS BEEN ASLEEP MOST OF THE SHIFT. PT AWOKE AGITATED AFTER SOILING HIMSELF. PT CHANGED AND WENT BACK TO SLEEP UNTIL HE WOKE AGAIN CRYING AND AFRAID. PT REORIENTED AND REASSURED. PT RETURNED TO SLEEP THE REST OF THE NIGHT. CALL LIGHT IN REACH, BED IN LOWEST POSITION, WILL CONTINUE TO MONITOR.
[2020-09-29] MEDS ORDERED: QUET25 PO (10:27)
[2020-09-29] MEDS ORDERED: TAMS.4ER PO (10:27)
[2020-09-29] MEDS ORDERED: Vitamin D2000 UNIT PO (10:28)
--- NOTE | 2020-09-29 11:11 | NUR ---
DISCHARGE SUMMARY PT DISCHARGED TO [facility]. PT LEFT ROOM VIA WHEELCHAIR WITH TRANSPORTERS AT 1110. BELONGINGS RETURNED AND NO IV IN PLACE AT TIME OF DC. REPORT CALLED AT 1113 AND GIVEN AT 1119 TO LISA
== END 2020-09-29 11:10 | DRG 871 ==
LOC: ER 11:57 → MEDS 11:58 → ER 15:54 → MEDS 15:54 → EDPENDDIS 09-29 09:57 → ENPENDDIS 09-29 09:57 → MEDS 09-29 11:10
PROVIDERS: Emergency Medicine; Family Medicine; Internal Medicine; Physician Assistant; ADMIT Internal Medicine
DX: A41.89 Other specified sepsis (principal); U07.1 COVID-19; J12.89 Other viral pneumonia; E87.1 Hypo-osmolality and hyponatremia; E87.0 Hyperosmolality and hypernatremia; N17.9 Acute kidney failure, unspecified; N39.0 Urinary tract infection, site not specified; F03.91 Unspecified dementia, unspecified severity, with behavioral disturbance; R65.20 Severe sepsis without septic shock; N18.30 Chronic kidney disease, stage 3 unspecified; E78.5 Hyperlipidemia, unspecified; M10.9 Gout, unspecified; E86.0 Dehydration; Z66 Do not resuscitate; R33.9 Retention of urine, unspecified; R54 Age-related physical debility; R62.7 Adult failure to thrive; R09.02 Hypoxemia; E83.39 Other disorders of phosphorus metabolism; N40.1 Benign prostatic hyperplasia with lower urinary tract symptoms
CPT/HCPCS: 0241U; 36415; 36600; 71045; 76770; 80048; 80053; 80069; 80202; 81001; 82803; 83605; 84145; 85025; 85027; 85610; 87040; 87077; 87086; 87186; 93005; 93010; 96360; 96361; 96365; 96366; 96367; 96372; 97162; 97164; 97165; 97530; 97535; 99285-25; A9270; A9270-GY; G0378; J0696; J1650; J3370; J7030; J7040; J7050; J7060

== ENCOUNTER 2021-05-15 14:00 | Emergency (ER) | payer OTHER ==
[~2021-05-15] VITALS: Ht 175.3 cm; Wt 65.8 kg
[~2021-05-15 14:00] MED LIST changes: +ACET325 PO; +ASPI81CH PO; +DULCOLAX400 MG/5 M PO; +KEPPRA250 M2 PO; +Prinivil10 MG PO; +QUET25 PO; +ROSU5 PO; +TAMS.4ER PO; +Vitamin D2000 UNIT PO
== END 2021-05-15 16:45 | disposition home or self-care (01) ==
LOC: ER 14:00
DX: S51.011A Laceration without foreign body of right elbow, initial encounter (principal); N18.30 Chronic kidney disease, stage 3 unspecified; Z79.82 Long term (current) use of aspirin; Z79.899 Other long term (current) drug therapy; W19.XXXA Unspecified fall, initial encounter
CPT/HCPCS: 99283

== ENCOUNTER → 2021-05-18 | Outpatient (CLI) | payer MEDICARE ==
[2021-05-18 14:00] LABS: Source, Urine Clean Catch
[2021-05-18 15:27] LABS: Appearance, Urine Cloudy (Clear); Bilirubin, Urine Neg (Neg); Blood, Urine 2+ (Neg); Color, Urine Yellow (P-Yellow); Glucose Qualitative, Urine Neg (Neg); Ketones, Urine Neg (Neg); Leukocyte Esterase, Urine 3+ (Neg); Nitrite, Urine Neg (Neg); Protein, Urine 2+ (Neg); Specific Gravity, Urine 1.015 (1.003-1.022); Urobilinogen, Urine NORM (Normal)
[2021-05-18 16:00] LABS: White Blood Cells, Urine 50-100 /hpf (0-5)
[2021-05-18 16:04] LABS: Amorphous Light (0-Heavy); Bacteria Many /hpf; Squamous Epithelial Cells Rare /hpf (Few)
== END ==
LOC: LAB SHORT 08:00 → LAB 08:00
PROVIDERS: Family Medicine
DX: N39.0 Urinary tract infection, site not specified (principal); Z66 Do not resuscitate
CPT/HCPCS: 81001; 87077; 87086; 87186

== ENCOUNTER 2021-10-25 21:29 | Inpatient (IN) | payer OTHER, MEDICARE ==
[~2021-10-25] VITALS: Ht 167.6 cm; Wt 71.7 kg
[2021-10-25] MEDS ORDERED: ALLO100 PO (22:20)
[2021-10-25] MEDS ORDERED: ASPI81CH PO (22:20)
[2021-10-25] MEDS ORDERED: Acetaminophen650 M1 PO (22:20)
[2021-10-25] MEDS ORDERED: Prinivil10 MG PO (22:21)
[2021-10-25] MEDS ORDERED: CLOP75 PO (22:21)
[2021-10-25] MEDS ORDERED: LOPE2C (22:25)
[2021-10-25] MEDS ORDERED: MIRALAX17 GM PO (22:26)
[2021-10-25] MEDS ORDERED: MEMA10 PO (22:26)
[2021-10-25] MEDS ORDERED: Seroquel Xr50 MG PO (22:36)
[2021-10-25] MEDS ORDERED: SENNA LAXATIVE8.6 MG PO (22:37)
[2021-10-25] MEDS ORDERED: TAMS.4ER PO (22:37)
[2021-10-26 00:47] LABS: BASOPHILS PERCENT AUTO 1 % (0-2); EOSINOPHILS PERCENT AUTO 6 % (0-6); Hemoglobin 14.3 g/dL (13.5-17.5); IMMATURE GRAN ABSOLUTE AUTO 0.02 K/mm3 (0.00-0.10); IMMATURE GRAN PERCENT AUTO 0 % (0-1); LYMPHOCYTES ABSOLUTE AUTO 2.23 K/mm3 (0.84-5.20); LYMPHOCYTES PERCENT AUTO 25 % (21-46); MONOCYTES ABSOLUTE AUTO 0.47 K/mm3 (0.16-1.47); MONOCYTES PERCENT AUTO 5 % (4-13); Mean Corpuscular HGB 31.8 pg (26.0-34.0); Mean Corpuscular HGB Conc 31.8 g/dL (31.5-36.5); Mean Corpuscular Volume 100 fL (80-100); NEUTROPHILS ABSOLUTE AUTO 5.53 K/mm3 (1.96-9.15); NEUTROPHILS PERCENT AUTO 63 % (41-73); Platelet Count 181 K/mm3 (150-400); RDW Coefficient Variation 14.6 % (11.7-14.2); RDW Standard Deviation 54.6 fL (35.1-46.3); Red Blood Cell Count 4.49 M/mm3 (4.30-5.90); White Blood Cell Count 8.85 K/mm3 (4.00-11.30)
[2021-10-26 00:58] LABS: Influenza A, PCR NEGATIVE (NEGATIVE); Influenza B, PCR NEGATIVE (NEGATIVE); Resp Syncytial Virus, PCR NEGATIVE (NEGATIVE); SARS-Cov-2 (COVID-19) PCR, MMC NEGATIVE (NEGATIVE)
[2021-10-26 01:13] LABS: Albumin, Blood 3.4 g/dL (3.4-5.0); Albumin/Globulin Ratio 0.8 (0.8-1.8); Bilirubin, Total 0.4 mg/dL (0.1-1.0); Bun/Creatinine Ratio 22.2 (12.0-20.0); Calcium, Blood 9.2 mg/dL (8.5-10.1); Creatinine, Blood 1.89 mg/dL (0.60-1.20); Globulin, Blood 4.3 g/dL (2.2-4.0); Potassium, Blood 5.2 mmol/L (3.5-5.5); Total Protein, Blood 7.7 g/dL (6.4-8.2)
--- NOTE | 2021-10-26 02:37 | NUR ---
RECEIVED PATIENT TO UNIT ABOUT 0210. MOANING AND SHIFTING IN BED HOLDING ONTO LEFT HIP YELLING OUT DON'T HURT ME. POSITIONED PATIENT FOR COMFORT. PATIENT ALERT TO SELF, UNABLE TO ANSWER QUESTIONS. SAFETY MAINTAIBED CALL DAVIDSON IN REACH.
--- NOTE | 2021-10-26 06:40 | NUR ---
PATIENT HAS NOT VOIDED ON UNIT. BLADDER SCANNED FOR 546ML, NOTIFIED DR. SMITH, RECEIVED ORDERS TO INSERT JAMES CATHETER, RECEIVED 600ML OF CLEAR YELLOW URINE. TOLERATED WELL, [facility] C&S SENT.
[2021-10-26 07:33] LABS: Source, Urine Catheter
[2021-10-26 07:40] LABS: BASOPHILS ABSOLUTE AUTO 0.08 K/mm3 (0.00-0.23); BASOPHILS PERCENT AUTO 1 % (0-2); EOSINOPHILS ABSOLUTE AUTO 0.15 K/mm3 (0.00-0.68); EOSINOPHILS PERCENT AUTO 2 % (0-6); Hematocrit 46.1 % (37.0-53.0); Hemoglobin 15.2 g/dL (13.5-17.5); IMMATURE GRAN ABSOLUTE AUTO 0.04 K/mm3 (0.00-0.10); IMMATURE GRAN PERCENT AUTO 0 % (0-1); LYMPHOCYTES ABSOLUTE AUTO 0.88 K/mm3 (0.84-5.20); LYMPHOCYTES PERCENT AUTO 9 % (21-46); MONOCYTES PERCENT AUTO 8 % (4-13); Mean Corpuscular HGB 32.5 pg (26.0-34.0); Mean Corpuscular Volume 99 fL (80-100); Mean Platelet Volume 10.2 fL (9.1-12.4); NEUTROPHILS ABSOLUTE AUTO 8.18 K/mm3 (1.96-9.15); NEUTROPHILS PERCENT AUTO 81 % (41-73); Platelet Count 172 K/mm3 (150-400); RDW Coefficient Variation 14.6 % (11.7-14.2); RDW Standard Deviation 52.8 fL (35.1-46.3); Red Blood Cell Count 4.68 M/mm3 (4.30-5.90); White Blood Cell Count 10.13 K/mm3 (4.00-11.30)
[2021-10-26 08:00] LABS: Albumin, Blood 3.5 g/dL (3.4-5.0); Albumin/Globulin Ratio 0.9 (0.8-1.8); Bilirubin, Total 0.7 mg/dL (0.1-1.0); Bun/Creatinine Ratio 21.4 (12.0-20.0); Calcium, Blood 9.4 mg/dL (8.5-10.1); Creatinine, Blood 1.73 mg/dL (0.60-1.20); Potassium, Blood 5.7 mmol/L (3.5-5.5); Total Protein, Blood 7.5 g/dL (6.4-8.2)
[2021-10-26 08:04] LABS: Appearance, Urine Clear (Clear); Bilirubin, Urine Neg (Neg); Blood, Urine Neg (Neg); Color, Urine Yellow (P-Yellow); Glucose Qualitative, Urine Neg (Neg); Ketones, Urine Neg (Neg); Leukocyte Esterase, Urine Neg (Neg); Nitrite, Urine Neg (Neg); Protein, Urine Neg (Neg); Urobilinogen, Urine NORM (Normal)
--- NOTE | 2021-10-26 09:10 | NUR ---
SPOKE WITH PA FOR DR PRAKASH (IZZY) AND THEY PLAN TO SPEAK WITH SPOUSE BHUPENDRA WHO IS POA TO RECOMMEND Y[employer]I HIP ARTHROPLASTY FOR REPAIR OF LEFT HIP FX. CALLED SPOUSE BHUPENDRA AND INFORMED OF THIS AND TO EXPECT A CALL FROM DR PRAKASH. BHUPENDRA PLANS TO COME VISIT THE PATIENT THIS AFTERNOON IF NOT IN SURGERY. PATIENT IS RESTING IN BED AT THIS TIME, MEDICATED PRN FOR PAIN.
[2021-10-26 09:58] LABS: International Normalized Ratio 1.07; Prothrombin Time Results 11.2 Sec (9.7-11.5)
--- NOTE | 2021-10-26 14:03 | NUR ---
PT TO STEP. PT WITH DEMENTIA. AT BEDSIDE TO ANSWER QUESTIONS. ATTEMPTED TO REPOSITION PT TO DO A HAIR CLIP, PT DID NOT TOLERATE. [place] RING UNALBE TO BE REMOVED. TAPED IN PLACE.
--- NOTE | 2021-10-26 14:53 | NUR ---
10/26/21 1453 Arely Sauceda PATIENT ARRIVED TO OR WITH JAMES CATHETER IN PLACE DRAINING YELLOW URINE.
--- NOTE | 2021-10-26 18:26 | NUR ---
SHIFT SUMMARY PATIENT WITH ADVANCED DEMENTIA. ABLE TO REPORT PAIN. LEFT HIP FRACTURE REPAIRED BY DR PRAKASH THIS SHIFT WITH YENI HIP ARTHROPLASTY. AQUACEL C/D/I TO LEFT HIP. PATIENT SLEEPING IN BED AT THIS TIME. VSS. O2 VIA NC TO KEEP SATS ABOVE 90%. IV FLUID RUNNING. SPOUSE WAS PRESENT IN AFTERNOON. PLAN TO START PT/OT TOMORROW 10/27/21. WILL REPORT TO ELECTRIC METER TESTER SHOP RN.
[2021-10-27 03:49] LABS: BASOPHILS ABSOLUTE AUTO 0.01 K/mm3 (0.00-0.23); BASOPHILS PERCENT AUTO 0 % (0-2); EOSINOPHILS PERCENT AUTO 0 % (0-6); Hematocrit 39.8 % (37.0-53.0); Hemoglobin 12.9 g/dL (13.5-17.5); IMMATURE GRAN ABSOLUTE AUTO 0.04 K/mm3 (0.00-0.10); IMMATURE GRAN PERCENT AUTO 0 % (0-1); LYMPHOCYTES ABSOLUTE AUTO 0.66 K/mm3 (0.84-5.20); LYMPHOCYTES PERCENT AUTO 6 % (21-46); MONOCYTES ABSOLUTE AUTO 0.66 K/mm3 (0.16-1.47); MONOCYTES PERCENT AUTO 6 % (4-13); Mean Corpuscular HGB 32.3 pg (26.0-34.0); Mean Corpuscular HGB Conc 32.4 g/dL (31.5-36.5); Mean Corpuscular Volume 100 fL (80-100); Mean Platelet Volume 10.6 fL (9.1-12.4); NEUTROPHILS ABSOLUTE AUTO 9.58 K/mm3 (1.96-9.15); NEUTROPHILS PERCENT AUTO 88 % (41-73); Platelet Count 142 K/mm3 (150-400); RDW Coefficient Variation 14.4 % (11.7-14.2); RDW Standard Deviation 53.1 fL (35.1-46.3); White Blood Cell Count 10.95 K/mm3 (4.00-11.30)
--- NOTE | 2021-10-27 05:34 | NUR ---
ALERT TO SELF. MEDICATED WITH FENTANYL 50MCG FOR PAIN MANAGEMENT L FOR HIP, EFFECTIVE RELIEF. AQUACEL DRESSING INTACT, ABDUCTOR WEDGE IN PLACE. JAMES CATHETER PATENT. SAFETY MAINTAINED.
--- NOTE | 2021-10-27 18:31 | NUR ---
PATIENT HAD A VERY EVENTFUL DAY TODAY. PATIENT WAS TRYING TO PULL HIS JAMES CATH OUT THIS AM WHEN DOING ASSESSMENT. THERE WAS AN ORDER TO DC JAMES, REMOVED JAMES AT 0900. PATIENT WAS PULLING AT AND REMOVING O2 TUBING, LEFT OFF WITH O2 SATS REMAINING IN NORMAL RANGE WITH SPOT CHECKS. PATIENT ATTEMPTING TO REMOVED IV AND TUBING, STOPPED FLUIDS TO TRY TO SAVE IV. HE STOPPED BOTHERING THE IV WHEN IV TUBING NOT THERE. PATIENT REMOVED HIS DRESSING TO LEFT HIP AND WAS DIGGING AT HIS INCISION, CLEANSED THE WOUND THEN REDRESSED THE INCISION. AT ABOUT 1000 PATIENT REMOVED DRESSING AGAIN AND WAS DIGGING IN WOUND CAUSING IT TO BLEED. CLEANSED AND REDRESSED AT THAT TIME. CALLED HIS TO COME SIT WITH HIM. MEDICATED WITH HALDOL PER ORDERS. PATIENT SLEEPING WHEN ARRIVED. HE WOKE UP SHE WAS ABLE TO GIVE HIM SOME ROOTBEER AND M[employer]S WHICH SHE SAYS IS HIS FAVORITE. PATIENT REFUSED ALL MEDS TODAY, SPITTING THEM OUT. PATIENT REFUSED ALL FOOD TODAY SPITTING IT ALL OUT. PATIENT NOT ORIENTED, HE IS CONFUSED AND WANTS TO GO HOME HE SAYS. MONITOR PATIENT FREQUENTLY DUE TO HIM PULLING THINGS OFF. AT 1530 BLADDER SCAN DONE, 213 ML NOTED IN BLADDER. ATTENDS IS DRY. WILL HAVE ENGINE SETTER RECHECK AT [address] PRAKASH ARRIVED TO CHANGED DRESSING AT ABOUT 1700 TODAY. ENTERED ROOM TO PATIENT HAVING BLOODY FINGERS AND DRESSING OFF TO LEFT HIP, IV LAYING IN BED. DR PRAKASH CLEANSED WOUND WELL AND APPLIED DRESSING. CALLED DR ONEILL TO ASK IF IV CAN BE LEFT OUT PATIENT BECOMES COMBATIVE WITH ANY CARE. PATIENT REFUSED LAB TO BE DRAWN TODAY AFTER 2 ATTEMPTS. WHEN PATIENTS IS HERE SHE IS ABLE TO KEEP HIM OUT OF HIS DRESSING. CURRENTLY HAVE A BLANKET TUCKED IN TO KEEP HIM FROM REMOVING HIS DRESSING AGAIN. WILL PASS ON TO NEXT SHIFT. WILL MONITOR
--- NOTE | 2021-10-27 22:49 | NUR ---
BLADDER SCANNED PATIENT FOR 613ML, NOTIFIED DR. SMITH, RECEIVED ORDER IN REINSERT JAMES. INSERTED JAMES CATHETER, RECEIVED IMMEDIATELY 700ML OF CLEAR YELLOW URINE, PATIENT VOICED RELIEF. REINSERTED IV 22G TO MOMO WITHOUT DIFFICULTY. MEDICATED FOR PAIN MANAGEMENT DUE TO INCREASED PAIN TO LEFT HIP WHEN REPOSITONED, FENTANYL 50MCG IV GIVEN, EFFECTIVE RELIEF AT THIS TIME. PATIENT RESTING PEACEFULLY IN BED, SAFETY MAINTAINED. WILL CONTINUE TO MONITOR.
--- NOTE | 2021-10-28 04:22 | NUR ---
PATIENT YELLING OUT OW MULTIPLE TIMES HOLDING ONTO LEFT HIP. PATIENT FIDGITY AND APPEARS RESTLESS AND GRIMACING. BP 141/87, P120. WHEN ASKED PATIENT WAS HE IN PAIN HE DID NOT GIVE APPROPRIATE RESPONSE. FLACC SCORE RATING A #7. MEDICATED WITH FENTANYL 50MCG VIA IV. WILL CONTINUE TO MONITOR.
[2021-10-28 05:20] LABS: BASOPHILS ABSOLUTE AUTO 0.03 K/mm3 (0.00-0.23); BASOPHILS PERCENT AUTO 0 % (0-2); EOSINOPHILS ABSOLUTE AUTO 0.24 K/mm3 (0.00-0.68); EOSINOPHILS PERCENT AUTO 2 % (0-6); Hematocrit 37.9 % (37.0-53.0); Hemoglobin 12.4 g/dL (13.5-17.5); IMMATURE GRAN ABSOLUTE AUTO 0.05 K/mm3 (0.00-0.10); IMMATURE GRAN PERCENT AUTO 0 % (0-1); LYMPHOCYTES ABSOLUTE AUTO 1.32 K/mm3 (0.84-5.20); LYMPHOCYTES PERCENT AUTO 11 % (21-46); MONOCYTES ABSOLUTE AUTO 1.01 K/mm3 (0.16-1.47); MONOCYTES PERCENT AUTO 9 % (4-13); Mean Corpuscular HGB 32.7 pg (26.0-34.0); Mean Corpuscular HGB Conc 32.7 g/dL (31.5-36.5); Mean Corpuscular Volume 100 fL (80-100); Mean Platelet Volume 10.8 fL (9.1-12.4); NEUTROPHILS ABSOLUTE AUTO 8.92 K/mm3 (1.96-9.15); NEUTROPHILS PERCENT AUTO 77 % (41-73); Platelet Count 130 K/mm3 (150-400); RDW Coefficient Variation 14.6 % (11.7-14.2); RDW Standard Deviation 53.1 fL (35.1-46.3); Red Blood Cell Count 3.79 M/mm3 (4.30-5.90); White Blood Cell Count 11.57 K/mm3 (4.00-11.30)
[2021-10-28 05:45] LABS: Albumin, Blood 2.8 g/dL (3.4-5.0); Anion Gap 5 mmol/L (6-16); Blood Urea Nitrogen 30 mg/dL (8-24); Bun/Creatinine Ratio 18.1 (12.0-20.0); CO2, Blood 26 mmol/L (21-32); Calcium, Blood 8.7 mg/dL (8.5-10.1); Chloride, Blood 108 mmol/L (98-108); Creatinine, Blood 1.66 mg/dL (0.60-1.20); Glomerular Filtration Rate 40 (60-); Glucose, Blood 120 mg/dL (70-99); Phosphorus, Blood 2.2 mg/dL (2.5-4.9); Potassium, Blood 4.7 mmol/L (3.5-5.5); Sodium, Blood 139 mmol/L (136-145)
--- NOTE | 2021-10-28 06:20 | NUR ---
PATIENT RESTING IN BED, WHEN ATTEMPTING TO TALK TO PATIENT, HE CONSTANTLY SAYS NO. PATIENT AGITATED WHEN ATTEMPTING TO GET VS, PULLS HAND AWAY. ABLE TO GET VS FROM RADIAL AREA WITHOUT DIFFICULTY. JAMES IN PLACE, PATENT, IV INTACT TO MOMO, ABDUCTOR WEDGE IN PLACE. SAFETY MAINTAINED.
[2021-10-28 09:21] LABS: Source, Urine Catheter
[2021-10-28 09:26] LABS: Appearance, Urine Cloudy (Clear); Bilirubin, Urine Neg (Neg); Blood, Urine 5+ (Neg); Color, Urine Yellow (P-Yellow); Glucose Qualitative, Urine Neg (Neg); Ketones, Urine Neg (Neg); Leukocyte Esterase, Urine 3+ (Neg); Nitrite, Urine Pos (Neg); Protein, Urine 3+ (Neg); Specific Gravity, Urine 1.015 (1.003-1.022); Urobilinogen, Urine 1+ (Normal)
[2021-10-28 09:33] LABS: Bacteria Many /hpf; White Blood Cells, Urine 50-100 /hpf (0-5)
[2021-10-28 09:35] LABS: Squamous Epithelial Cells Not Seen /hpf (Few)
--- NOTE | 2021-10-28 10:21 | NUR ---
PATIENT WITH ELEVATED TEMP. THIS A.M. MD Corinna NOTIFIED, TYLENOL SUPPOSITORY GIVEN. ONE HOUR LATER TEMP UP TO 102.9, HERE, AWARE. NEW ORDER RECIEVED FOR TORADOL ONE TIME, GIVEN. PATIENT DID TAKE A.M. MEDS CRUSHED IN ONE BITE OF APPLESAUCE. PATIENT SITTING UP, SMALL SIPS OF ROOT BEER GIVEN. NOTED MILD COUGH AFTER LAST SIP. REFUSED BREAKFAST. COOL WASHCLOTH TO FOREHEAD. TEMP AT THIS TIME IS 99.4. UA SENT TO LAB.
--- NOTE | 2021-10-28 16:29 | NUR ---
SHIFT SUMMARY: PT. ORIENTED TO SELF. MOAINING THIS A.M., FENT. 25MCG GIVEN AND PT. APPEAR COMFORTABLE AFTER MEDICATION, HOWEVER HAD TEMP OF 101., TYLENOL SUPP. GIVEN AND ONE HOUR LATER TEMP UP TO 102.9, TORADOL GIVEN AND TEMP EVENTUALLY DOWN TO 97, AT THIS TIME IS LOW GRADE AT 99. COOL WASH CLOTH GIVEN THRU OUT SHIFT, PT. TOLERATE FEVER WELL WITHOUT COMPLAINT. NO PULLING AT LINES OR DRSG. TODAY. URINE SENT TO LAB, CHEST XRAY AND BLOOD CULTURES DONE AND THE ROCEPHIN IV GIVEN ORDERED. PATIENT APPEARS COMFORTABLE AT THIS TIME. IN TO SEE PT. TODAY AND WAS MADE AWARE OF PT. FEVER, NOT EATING. TAKING SMALL SIPS, SITTING PT. STRAIGHT UP WHEN DRINKING. TRIED TO FEED PT. PINEAPPLE CHUNKS, PT. JUST SUCKED THE JUICE OUT OF THEM AND THE PINEAPPLE STAYED IN MOUTH. DISCUSSED WITH CHOKING POTENTIAL AND AGREE AND UNDERSTANDS. TAKING SM. SIP OF WATER AND PT. LIKES ROOT BEER. DRSG. LEFT HIP CLEAN, DRY, INTACT. MOUTH CLEANED AND ORAL CARE DONE, LIP BALM. ABDUCTOR PILLOW IN PLACE.
--- NOTE | 2021-10-28 17:50 | NUR ---
SHIFT SUMMARY UPDATE: PATIENT ASKED IF HE WAS HUNGRY, STATED "YES". PT. WITH NO ATTEMPT TO FEED SELF. FED PATIENT 1/4 OF HIS MASHED POTATOES AND GRAVY, DECLINED [facility] SOFT MEAT. ATE 1/2 OF HIS APPLESAUCE. TAKING PO MEDS CRUSHED WITH NO PROBLEM IN APPLESAUCE. SAT STRAIGHT UP FOR SIPS OF WATER, COUGHED WITH MILK, UNABLE TO USE STRAW. AFTER A SMALL PORTION OF POTATOES AND APPLESAUCE PT. REFUSED ANYMORE, MOUTH SHUT AND SHAKING HEAD NO. ORAL CARE AFTER DINNER. BED ALARM ON, NO ATTEMPTS TO EXIT. CALL LIGHT IN REACH, SOFT MUSIC PLAYING. NO S/S PAIN OR DISCOMFORT. TEMP. 98.3 AT THIS TIME.
--- NOTE | 2021-10-29 04:54 | NUR ---
PATIENT FEBRILE 100.0, TYLENOL 650MG PO, TEMP DECRAESED TO 97.7. 0450 VS 90/68,P107, NOTIFIED SARAH MURRAY, RECEIVED ORDERS BOLUS 500ML, AND CONTINUE ON NORMAL SALINE 75/HR. WILL CONTINUE TO MONITOR.
[2021-10-29 04:59] LABS: BASOPHILS ABSOLUTE AUTO 0.07 K/mm3 (0.00-0.23); BASOPHILS PERCENT AUTO 0 % (0-2); EOSINOPHILS ABSOLUTE AUTO 0.14 K/mm3 (0.00-0.68); EOSINOPHILS PERCENT AUTO 1 % (0-6); Hematocrit 34.4 % (37.0-53.0); Hemoglobin 11.1 g/dL (13.5-17.5); IMMATURE GRAN ABSOLUTE AUTO 0.43 K/mm3 (0.00-0.10); IMMATURE GRAN PERCENT AUTO 3 % (0-1); LYMPHOCYTES ABSOLUTE AUTO 1.32 K/mm3 (0.84-5.20); LYMPHOCYTES PERCENT AUTO 8 % (21-46); MONOCYTES ABSOLUTE AUTO 1.22 K/mm3 (0.16-1.47); MONOCYTES PERCENT AUTO 8 % (4-13); Mean Corpuscular HGB Conc 32.3 g/dL (31.5-36.5); Mean Corpuscular Volume 99 fL (80-100); Mean Platelet Volume 11.3 fL (9.1-12.4); NEUTROPHILS ABSOLUTE AUTO 12.46 K/mm3 (1.96-9.15); NEUTROPHILS PERCENT AUTO 80 % (41-73); Platelet Count 146 K/mm3 (150-400); RDW Coefficient Variation 14.6 % (11.7-14.2); RDW Standard Deviation 52.5 fL (35.1-46.3); Red Blood Cell Count 3.47 M/mm3 (4.30-5.90); White Blood Cell Count 15.64 K/mm3 (4.00-11.30)
[2021-10-29 06:09] LABS: Albumin, Blood 2.2 g/dL (3.4-5.0); Anion Gap 7 mmol/L (6-16); Blood Urea Nitrogen 38 mg/dL (8-24); Bun/Creatinine Ratio 16.5 (12.0-20.0); CO2, Blood 25 mmol/L (21-32); Calcium, Blood 8.2 mg/dL (8.5-10.1); Chloride, Blood 108 mmol/L (98-108); Glomerular Filtration Rate 27 (60-); Glucose, Blood 134 mg/dL (70-99); Phosphorus, Blood 2.3 mg/dL (2.5-4.9); Potassium, Blood 4.7 mmol/L (3.5-5.5); Sodium, Blood 140 mmol/L (136-145)
--- NOTE | 2021-10-29 06:37 | NUR ---
RECEIVED 500ML BOLUS AT THIS TIME. BP 102/67, P 87, T 97.6, RESPIRATIONS EVEN AND UNLABRED. SLEPT WELL THROUGH NIGHT, NO S/S OF PAIN NOTED. REPOSITIONED PATIENT, FOLEYCATH PATENT DRAINING DARK ELAINA URINE. SAFETY MAINTAINED,
--- NOTE | 2021-10-29 16:54 | NUR ---
PT. SIGNIGICANT OTHER IN TO SEE PT. TODAY AND MET WITH PHYSICAL THERAPY. PATIENT UP OUT OF BED WITH 2 PERSON MAX ASSIST TO CHAIR. PATIENT TOOK SMALL SHUFFLE STEPS, DIFFICULT TO FOLLOW COMMANDS, MUCH ASSIST NEEDED BUT TOLERATE WELL. IS UP IN CHAIR AT THIS TIME. APPETITE IMPROVED TODAY AND PT. IS A TOTAL FEEDER. NO S/S PAIN OR DISCOMFORT, NO NARCOTICS GIVEN TODAY. TYLENOL THIS A.M. GIVEN FOR PAIN CONTROL. AFEBRILE.
--- NOTE | 2021-10-29 18:17 | NUR ---
PT. BACK TO BED WITH 2 PERSON MAX ASSIST AND MUCH COACHING. NOTED PT. FELT HOT, TEMP TAKEN 100.2 AT THIS TIME. TYLENOL GIVEN AND ALSO FENTANYL FOR PT. GRIMACING AND STATING "IT HURTS" , GRABBING AT AQUACELL DRSG. NOTED DRSG. WITH OLD DRIED DRAINAGE MODERATE AMOUNT. AFTER FENTANYL GIVEN PT. CALM DOWN AND DRSG. CHANGED. PATIENT DID REFUSE TO EAT DINNER BUT DID TAKE APPLESAUCE AND SIPS ROOT BEER. STATES " I WANT TO GO HOME". TLC GIVEN . ATTENDS CHANGED, JAMES CARE. PATIENT DID HAVE SMALL AMOUNT SOFT BROWN STOOL. BED ALARM ON TO ALERT STAFF PT. RISING. CALL LIGHT IN REACH. APPEARS COMFORTABLE AND RESTING.
--- NOTE | 2021-10-29 18:30 | NUR ---
LEFT HIP INCISION WELL APPROXIMATED WITH CAM INTACT. NO REDNESS OR SWELLING NOTED. DRAINAGE SEROUSANG IS OLD AND DRIED.
--- NOTE | 2021-10-29 22:26 | NUR ---
TEMP 100.5, COOL COMPRESS APPLIED, TEMP 99.0.
--- NOTE | 2021-10-29 23:04 | NUR ---
ALLOWED ME TO FEED HIM 2 CUPS OF APPLE SAUCE.
[2021-10-30 04:54] LABS: BASOPHILS ABSOLUTE AUTO 0.09 K/mm3 (0.00-0.23); BASOPHILS PERCENT AUTO 1 % (0-2); EOSINOPHILS PERCENT AUTO 4 % (0-6); Hematocrit 37.4 % (37.0-53.0); Hemoglobin 12.2 g/dL (13.5-17.5); IMMATURE GRAN ABSOLUTE AUTO 0.12 K/mm3 (0.00-0.10); IMMATURE GRAN PERCENT AUTO 1 % (0-1); LYMPHOCYTES ABSOLUTE AUTO 1.39 K/mm3 (0.84-5.20); LYMPHOCYTES PERCENT AUTO 8 % (21-46); MONOCYTES ABSOLUTE AUTO 1.18 K/mm3 (0.16-1.47); MONOCYTES PERCENT AUTO 7 % (4-13); Mean Corpuscular HGB 32.2 pg (26.0-34.0); Mean Corpuscular HGB Conc 32.6 g/dL (31.5-36.5); Mean Corpuscular Volume 99 fL (80-100); Mean Platelet Volume 10.9 fL (9.1-12.4); NEUTROPHILS ABSOLUTE AUTO 13.61 K/mm3 (1.96-9.15); NEUTROPHILS PERCENT AUTO 80 % (41-73); Platelet Count 155 K/mm3 (150-400); RDW Coefficient Variation 14.4 % (11.7-14.2); RDW Standard Deviation 52.3 fL (35.1-46.3); Red Blood Cell Count 3.79 M/mm3 (4.30-5.90); White Blood Cell Count 17.09 K/mm3 (4.00-11.30)
--- NOTE | 2021-10-30 05:07 | NUR ---
TYLENOL 650MG GIVEN PO DUE TO MILD DISCOMFORT, EFFECTIVE RELIEF. SLEPT WELL THROUGH NIGHT. TURNED AND REPOSITIONED TO OFFLOAD, ABDUCTOR WEDGE IN PLACE. DRESSING CLEAN DRY AND INTACT TO LEFT HIP. JAMES CATHETER PATENT. SAFETY MAINTAINED.
[2021-10-30 05:49] LABS: Albumin, Blood 2.3 g/dL (3.4-5.0); Anion Gap 9 mmol/L (6-16); Blood Urea Nitrogen 37 mg/dL (8-24); Bun/Creatinine Ratio 21.5 (12.0-20.0); CO2, Blood 23 mmol/L (21-32); Calcium, Blood 8.3 mg/dL (8.5-10.1); Chloride, Blood 110 mmol/L (98-108); Creatinine, Blood 1.72 mg/dL (0.60-1.20); Glomerular Filtration Rate 38 (60-); Glucose, Blood 100 mg/dL (70-99); Potassium, Blood 4.2 mmol/L (3.5-5.5); Sodium, Blood 142 mmol/L (136-145)
--- NOTE | 2021-10-30 14:45 | NUR ---
PT. UP IN CHAIR FOR LUNCH, MAX ASSIST OF 2, STAND AND PIVOT TO LOUNGER. APPETITE FAIR THIS MORNING, HAS IMPROVED FOR LUNCH, FEEDER. AT THIS TIME, HOWEVER, HANDED PT. CUP OF ROOTBEER AND PT. DRANK HIMSELF. GIVEN ICE CREAM AND PT. IS FEEDING SELF. SIGNIGICANT OTHER AT SIDE ENCOURAGING PATIENT. TOLERATE SITTING UP WELL. PHYSICAL THERAPY IN EARLIER WORKING WITH PATIENT.
--- NOTE | 2021-10-30 14:48 | NUR ---
PATIENT WITH BLOOD SUGAR OF 84MG/DL THIS A.M.- CALL TO TO NOTIFY. NEW ORDERS RECIEVED. BLOOD SUGAR AT NOON UP TO 246MG/DL. PATIENT WITH GOOD APPETITE. UP IN CHAIR, TOLERATE WELL.
--- NOTE | 2021-10-30 16:23 | NUR ---
PT. BACK TO BED AT THIS TIME, 2 PERSON MAX ASSIST WITH GAIT BELT. DID BEAR WT. AND PIVOT. LAYING ON RIGHT SIDE WITH PILLOWS BETWEEN LEGS TO KEEP OFF BUTTOCKS FOR NOW. PATIENT TOLERATE CHAIR WELL AND IS RESTING QUIETLY WITH NO S/S DISCOMFORT OR DISTRESS. NEW ORDER RECIEVED FOR CIPRO IV, ARIES DUARTE.
[2021-10-31 05:06] LABS: Bun/Creatinine Ratio 19.6 (12.0-20.0); Calcium, Blood 8.3 mg/dL (8.5-10.1); Creatinine, Blood 1.63 mg/dL (0.60-1.20); Potassium, Blood 3.9 mmol/L (3.5-5.5)
--- NOTE | 2021-10-31 05:47 | NUR ---
MEDICATED WITH FENTANYL 25MCG X'S 1 DUE TO PATIENT YELLING OUT IN PAIN, EFFECTIVE RELIEF. TURNED AND REPOSITIONED, ABDUCTOR WEDGE IN PLACE. JAMES PATENT, JAMES CARE COMPLETE. DRESSING INTACT TO LEFT HIP. SAFETY MAINTAINED.
--- NOTE | 2021-10-31 19:06 | NUR ---
SHIFT SUMMARY PATIENT ORIENTED TO SELF ONLY. SLEPT THROUGHOUT SHIFT. TOLERATING [facility] SOFT DIET AND LIQUIDS. TAKES PILLS WHOLE WITH THIN LIQUIDS. 2 PERSON MAX ASSIST TO CHAIR AND BACK TO BED. ROUTINE ABX. JACOB GUALLPA'Zev THIS SHIFT. PLAN TO DISCHARGE TO [facility] WHEN MEDICALLY STABLE. AQAUCEL TO LEFT HIP C/D/I. REPORT GIVEN TO HOIST MECHANIC RN.
--- NOTE | 2021-11-01 03:27 | NUR ---
POST JAMES REMOVAL FROM 1900, PATIENT HAD MODERATE AMT OF INCONTINENT VOID, 2355 BLADDER SCANNED FOR 198 ML.
[2021-11-01 04:48] LABS: BASOPHILS ABSOLUTE AUTO 0.09 K/mm3 (0.00-0.23); BASOPHILS PERCENT AUTO 1 % (0-2); EOSINOPHILS PERCENT AUTO 4 % (0-6); Hematocrit 34.5 % (37.0-53.0); Hemoglobin 11.2 g/dL (13.5-17.5); IMMATURE GRAN PERCENT AUTO 1 % (0-1); LYMPHOCYTES ABSOLUTE AUTO 1.52 K/mm3 (0.84-5.20); LYMPHOCYTES PERCENT AUTO 12 % (21-46); MONOCYTES ABSOLUTE AUTO 1.23 K/mm3 (0.16-1.47); MONOCYTES PERCENT AUTO 10 % (4-13); Mean Corpuscular HGB 31.9 pg (26.0-34.0); Mean Corpuscular HGB Conc 32.5 g/dL (31.5-36.5); Mean Corpuscular Volume 98 fL (80-100); NEUTROPHILS ABSOLUTE AUTO 9.31 K/mm3 (1.96-9.15); NEUTROPHILS PERCENT AUTO 73 % (41-73); Platelet Count 225 K/mm3 (150-400); RDW Coefficient Variation 14.3 % (11.7-14.2); RDW Standard Deviation 51.9 fL (35.1-46.3); Red Blood Cell Count 3.51 M/mm3 (4.30-5.90); White Blood Cell Count 12.75 K/mm3 (4.00-11.30)
[2021-11-01 05:24] LABS: Bun/Creatinine Ratio 21.7 (12.0-20.0); Calcium, Blood 8.5 mg/dL (8.5-10.1); Creatinine, Blood 1.57 mg/dL (0.60-1.20)
--- NOTE | 2021-11-01 05:58 | NUR ---
SLEPT WELL THROUGH NIGHT. PLEASANTLY CONFUSED. 0530 BLADDER SCANNED FOR 645, RECEIVED ORERDS TO STRAIGHT CATH GREATER THAN 400 PRN. SAFETY MAINTAINED, TURNED AND REPOSITIONED THROUGH NIGHT.
--- NOTE | 2021-11-01 06:45 | NUR ---
RECEIVED 625 POST STRAIGHT CATH, TOLERATED WELL.
--- NOTE | 2021-11-01 14:43 | NUR ---
URINE RETENTION: PT BLADDER SCANNED AT ABOUT 1245 WITH OVER 400ML FOUND. PT THEN STRAIGHT CATHED BY STUDENT RN, PER ORDER. PT CONFUSED AND ATTEMPTED TO TAKE HOLD OF STAFF DURING INSERTION, BUT CALMED DOWN ONCE CATHETER PLACED AND URINE DRAINING. 400ML OF URINE DRAINED AT 1330. PT NOW RESTING QUIETLY, WILL CTM.
--- NOTE | 2021-11-01 17:45 | NUR ---
SUMMARY: PT IS S/P L HIP REPAIR. NO ACUTE CHANGE TODAY, VSS. SURGICAL SITE WNL. PT REPOSITIONED PRN FOR COMFORT. CONTINUES TO BE ORIENTED TO SELF ONLY, HX OF DEMENTIA. CONTINUING TO MONITOR FOR URINE RETENTION. PLAN IS POSSIBLE DC TO [facility]. BED ALARM ON, NO SAFETY CONCERNS CURRENTLY.
--- NOTE | 2021-11-02 05:08 | NUR ---
RETAIL DIRECTOR SUMMARY PT AAOX1, PLEASANTLY CONFUSED BUT CAN BE IRRITABLE WITH CARE. PT DENIES PAIN AND SHOWS NO SIGN OF ANY PAIN OR DISCOMFORT. AQUACEL DRESSING TO LEFT HIP C/D/I. PT HAS BEEN VOIDING WELL TONIGHT WITH 3 HEAVY INCONTINENT VOIDS THROUGHOUT THE SHIFT. HAD SMALL BM. VSS, WILL CONTINUE TO MONITOR.
--- NOTE | 2021-11-02 15:32 | NUR ---
Received referral from nurse pharmacy care coordinator (Adele Givens) on 11/02/2021. Patient is to discharge with orders for home health and elected [facility]. Contacted patient's care facility- [facility] (Patricia) to notify her of the above. Attempted to reach patient's (Jodi Wills) today- 11/02/2021 at 1525 to further discuss the above. Unfortunately, patient's did not answer. Left message asking for return phone call. Gathered all supporting documentation for referral (face sheet, face to face, med list, H&P, and most recent PT assessment) and sent to [facility] for review. No further interventions required. Lexus Becerra Referral Liaison
--- NOTE | 2021-11-02 15:36 | NUR ---
DISCHARGE: LOBSTER CATCHER GHULAM ARRANGED PT DISCHARGE/TRANSFER BACK TO [facility]. TRANSPORT HERE AT ABOUT 1400, IV DC'D WNL AND PT TRANSFERED TO WHEELCHAIR. REPORT CALLED TO ASHLEY ROWE AT [facility]. PT AWARE OF TRANSFER AND PRESENT WHEN PT LEFT HOSPITAL.
== END 2021-11-02 14:09 | disposition home or self-care (01) | DRG 522 ==
LOC: ER 21:29 → SURS 10-26 00:20
PROVIDERS: Internal Medicine; Orthopaedic Surgery; Physician Assistant; ADMIT Internal Medicine
PROC: 0SRS0JA Replacement of Left Hip Joint, Femoral Surface with Synthetic Substitute, Uncemented, Open Approach (ICD-10-PCS; principal; 2021-10-26 16:15)
DX: S72.002A Fracture of unspecified part of neck of left femur, initial encounter for closed fracture (principal); N39.0 Urinary tract infection, site not specified; N17.9 Acute kidney failure, unspecified; Z20.822 Contact with and (suspected) exposure to COVID-19; Z66 Do not resuscitate; E87.5 Hyperkalemia; E16.2 Hypoglycemia, unspecified; M10.9 Gout, unspecified; R33.9 Retention of urine, unspecified; I12.9 Hypertensive chronic kidney disease with stage 1 through stage 4 chronic kidney disease, or unspecified chronic kidney disease; G30.9 Alzheimer's disease, unspecified; B96.5 Pseudomonas (aeruginosa) (mallei) (pseudomallei) as the cause of diseases classified elsewhere; F02.80 Dementia in other diseases classified elsewhere, unspecified severity, without behavioral disturbance, psychotic disturbance, mood disturbance, and anxiety; N18.30 Chronic kidney disease, stage 3 unspecified; N40.0 Benign prostatic hyperplasia without lower urinary tract symptoms; Z88.8 Allergy status to other drugs, medicaments and biological substances; Z79.82 Long term (current) use of aspirin; Z79.02 Long term (current) use of antithrombotics/antiplatelets; Z79.899 Other long term (current) drug therapy; Z86.73 Personal history of transient ischemic attack (TIA), and cerebral infarction without residual deficits; W18.30XA Fall on same level, unspecified, initial encounter
CPT/HCPCS: 0241U; 36415; 70450; 71045; 72170; 73502; 80048; 80053; 80069; 81001; 81003; 85025; 85610; 85730; 87040; 87077; 87086; 87186; 94760; 96374; 96375; 97110; 97112; 97162; 97530; 99285-25; A9270; C1776; J0171; J0330; J0690; J0696; J0735; J0744; J1100; J1630; J1885; J2060; J2270; J2370; J2405; J2704; J2795; J3010; J7030; J7040; J7050; J7070; J7120

== ENCOUNTER 2021-11-13 11:37 | Emergency (ER) | payer OTHER ==
[~2021-11-13] VITALS: Ht 175.3 cm; Wt 74.8 kg
[~2021-11-13 11:37] MED LIST changes: +Acetaminophen650 M1 PO; +LOPE2C; +MIRALAX17 GM PO; +SENNA LAXATIVE8.6 MG PO; +Seroquel Xr50 MG PO
[2021-11-13 12:48] LABS: BASOPHILS ABSOLUTE AUTO 0.12 K/mm3 (0.00-0.23); BASOPHILS PERCENT AUTO 1 % (0-2); EOSINOPHILS ABSOLUTE AUTO 0.54 K/mm3 (0.00-0.68); EOSINOPHILS PERCENT AUTO 5 % (0-6); Hematocrit 27.3 % (37.0-53.0); Hemoglobin 8.7 g/dL (13.5-17.5); IMMATURE GRAN ABSOLUTE AUTO 0.04 K/mm3 (0.00-0.10); IMMATURE GRAN PERCENT AUTO 0 % (0-1); LYMPHOCYTES ABSOLUTE AUTO 1.68 K/mm3 (0.84-5.20); LYMPHOCYTES PERCENT AUTO 15 % (21-46); MONOCYTES ABSOLUTE AUTO 0.85 K/mm3 (0.16-1.47); MONOCYTES PERCENT AUTO 8 % (4-13); Mean Corpuscular HGB 31.5 pg (26.0-34.0); Mean Corpuscular HGB Conc 31.9 g/dL (31.5-36.5); Mean Corpuscular Volume 99 fL (80-100); Mean Platelet Volume 10.3 fL (9.1-12.4); NEUTROPHILS ABSOLUTE AUTO 7.94 K/mm3 (1.96-9.15); NEUTROPHILS PERCENT AUTO 71 % (41-73); Platelet Count 536 K/mm3 (150-400); RDW Coefficient Variation 14.7 % (11.7-14.2); RDW Standard Deviation 53.4 fL (35.1-46.3); Red Blood Cell Count 2.76 M/mm3 (4.30-5.90); White Blood Cell Count 11.17 K/mm3 (4.00-11.30)
[2021-11-13 13:03] LABS: Calcium, Blood 8.8 mg/dL (8.5-10.1); Creatinine, Blood 1.75 mg/dL (0.60-1.20); Potassium, Blood 4.7 mmol/L (3.5-5.5)
[2021-11-13 14:10] LABS: Hematocrit 26.3 % (37.0-53.0); Hemoglobin 8.6 g/dL (13.5-17.5)
[2021-11-13] MEDS ORDERED: Acetaminophen325 M1 PO (14:14)
[2021-11-14] MEDS ORDERED: Norco 5-325 Ta1 EACH PO (02:23)
== END 2021-11-13 17:30 | disposition home or self-care (01) ==
LOC: ER 11:37
PROVIDERS: Student in an Organized Health Care Education/Training Program
DX: M25.552 Pain in left hip (principal); E86.0 Dehydration; N18.30 Chronic kidney disease, stage 3 unspecified; Z88.8 Allergy status to other drugs, medicaments and biological substances; Z96.642 Presence of left artificial hip joint; Z79.899 Other long term (current) drug therapy; Z86.73 Personal history of transient ischemic attack (TIA), and cerebral infarction without residual deficits; Z79.82 Long term (current) use of aspirin
CPT/HCPCS: 73502; 80048; 83605; 85014; 85018; 85025; 99283-25; A9270; J7030

== ENCOUNTER 2021-11-14 02:12 | Emergency (ER) | payer OTHER ==
[~2021-11-14] VITALS: Ht 167.6 cm; Wt 71.2 kg
[~2021-11-14 02:12] MED LIST changes: +Acetaminophen325 M1 PO
[2021-11-14] MEDS ORDERED: Norco 5-325 Ta1 EACH PO (02:23)
== END 2021-11-14 03:42 ==
LOC: ER 02:12
DX: G89.18 Other acute postprocedural pain (principal); M25.552 Pain in left hip; N18.30 Chronic kidney disease, stage 3 unspecified; Z79.899 Other long term (current) drug therapy
CPT/HCPCS: 72170; 99283-25